=== PATIENT | male | born 1985 | race African-American/Black ===

== ENCOUNTER 2022-01-27 17:46 | Emergency (ER) | payer OTHER, SELFPAY ==
[2022-01-27 17:59] VITALS: BP 119/80; PULSE 94; RESP 16; TEMP 37.2; O2SAT 98
[2022-01-27 18:45] LABS: Influenza A QL RT-PCR Negative (Negative); Influenza B QL RT-PCR Negative (Negative); SARS-CoV-2 RNA PCR Positive
[2022-01-27 20:38] VITALS: BP 126/80; PULSE 76; RESP 16; TEMP 36.7; O2SAT 100
--- NOTE | 2022-01-27 21:02 | ED.FEVER ---
HPI - Fever General Chief Complaint: Fever Stated Complaint: intermittent fever Time Seen by Provider: 01/27/22 20:37 History of Present Illness HPI Narrative: 36-year-old male presenting to the emergency department for evaluation of cough and congestive symptoms. Patient states that Saturday he had a dental procedure and had to go anesthesia for a deep cleaning. Patient states after that he had increasing fatigue. Patient states on and Saturday he also felt poorly. Patient reports subjective fever with a dry cough. Patient denies any chest pain. Patient denies any nausea vomiting or diarrhea. Patient is vaccinated against COVID and patient did have COVID back in March. Patient denies any significant past medical history Review of Systems Review of Systems: CONSTITUTIONAL: Denies fever, chills, or sweats. EYES: Denies visual changes, redness, or discharge. ENT: Denies rhinorrhea, congestion, sore throat, or otalgia. CARDIOVASCULAR: Denies chest pain, palpitations, or edema. RESPIRATORY: See HPI GASTROINTESTINAL: Denies abdominal pain, nausea, vomiting, or diarrhea. GENITOURINARY: Denies dysuria or hematuria. SKIN: Denies rash or itching. MUSCULOSKELETAL: Denies back pain, joint pain, or myalgia. NEUROLOGIC: Denies headache, numbness, or weakness. Exam Narrative: APPEARANCE: Well appearing, no pain, no distress, well-nourished. HEAD: normocephalic, atraumatic. EYES: PERRLA/EOMI, conjunctivae clear. NOSE: Normal no drainage EARS:TMS clear with good light reflex. THROAT: Pharynx clear, no exudate. NECK: Supple. No adenopathy, no masses. RESPIRATORY: Airway patent, respirations nonlabored. Clear to auscultation bilaterally, no rales, rhonchi, wheezing. CARDIOVASCULAR: Regular rate and rhythm without murmurs rubs or gallops. ABDOMINAL: Soft, nontender, nondistended, normal bowel sounds MUSCULOSKELETAL: Moves all extremities. Strength/ROM intact, No edema, No calf tenderness. NEURO: Alert. Cranial nerves II through XII intact. Grossly intact SKIN: Warm, dry. Normal Color Course BUILDING ENERGY CONSULTANT/PA Physician Supervision Patient did test positive for COVID. Patient was prescribed albuterol inhaler and Tessalon Perles. Patient was provided a primary care physician for follow-up. All question concerns were addressed. Patient was comfortable to plan for discharge and close follow-up. Vital Signs Vital signs: Vital Signs Temperature 99.0 F 01/27/22 17:59 Pulse Rate 94 01/27/22 17:59 Respiratory Rate 16 01/27/22 17:59 Blood Pressure 119/80 01/27/22 17:59 Pulse Oximetry 98 01/27/22 17:59 Oxygen Delivery Room Air 01/27/22 17:59 Temperature 98.0 F 01/27/22 21:32 Pulse Rate 76 01/27/22 21:32 Respiratory Rate 16 01/27/22 21:32 Blood Pressure 122/68 01/27/22 21:32 Pulse Oximetry 100 01/27/22 21:32 Oxygen Delivery Room Air 01/27/22 20:38 MDM - Fever Lab Data Attestation: I reviewed the patient's lab results. Labs: Lab Results 01/27/22 Range/Units 18:03 Influenza A (RT-PCR) Negative (Negative) Influenza B (RT-PCR) Negative (Negative) SARS-CoV-2 RNA (RT-PCR) Positive A Discharge Plan Discharge Clinical Impression: COVID Patient Disposition: Home, Self-Care Condition: Stable Instructions: Antibiotic Form, COVID-19 (Coronavirus Disease 2019) (ED) Additional Instructions: Tylenol and ibuprofen for fever and for body aches. Albuterol inhaler for cough. Tessalon Perles for additional cough. Have close follow-up with Dr. Jeter. If you have any worsening symptoms please call or return to the emergency room Prescriptions: New albuterol sulfate 90 mcg/actuation HFA aerosol inhaler 1 inh inhalation QID PRN (Reason: shortness of breath or wheezing) Qty: 6.7 0RF benzonatate 100 mg capsule 100 mg PO BID PRN (Reason: cough) Qty: 14 0RF Follow-up/Referrals: PHYSICIAN,RAYMOND MILL OPERATOR [Primary Care Provider] - Ha Jeter MD [Physician] - Alessandra Hart
[2022-01-27 21:32] VITALS: BP 122/68; PULSE 76; RESP 16; TEMP 36.7; O2SAT 100
== END 2022-01-27 21:34 | disposition home or self-care (01) ==
PROVIDERS: Nurse Practitioner Family; Emergency Provider Emergency Medicine
DX: U07.1 COVID-19 (principal)
CPT/HCPCS: 87502; 99283; U0003; U0005

== ENCOUNTER 2022-02-17 09:10 | Outpatient (CLI) | payer OTHER, SELFPAY ==
--- NOTE | ~2022-02-17 | XR_ITS ---
EXAMINATION: XR chest 2V 02/17/2022 09:25 INDICATION: Cough for 2 weeks PROCEDURE: 2 view chest COMPARISON: No prior studies for comparison. FINDINGS: The lungs are clear. The cardiomediastinal silhouette is within normal limits. There are no pleural effusions. There is no pneumothorax suspected. IMPRESSION: 1: NO ACUTE CARDIOPULMONARY DISEASE. Reviewed, dictated and finalized at location A. GRAPH OPERATOR
[2022-02-17 10:27] LABS: Hematocrit 43.1 % (42.0-52.0); Hemoglobin 14.2 g/dL (14.0-18.0); Mean Corpuscular HGB Conc 32.9 g/dl (32-36); Mean Corpuscular Hemoglobin 29.3 pg (26-34); Mean Platelet Volume 11.5 fl (7.4-10.4); Platelet Count Result 296 k/mm3 (150-375); Red Blood Count 4.84 M/mm3 (4.6-6.20); Red Cell Distribution Width 13.6 % (11.5-14.5); White Blood Count 3.5 K/mm3 (4.5-10.0)
[2022-02-17 10:30] LABS: Alanine Aminotransferase 25 U/L (6-50); Albumin Level 4.4 g/dL (3.5-5.1); Alkaline Phosphatase 94 U/L (38-126); Anion Gap 8 mmol/L (8-16); Aspartate Amino Transferase 25 U/L (17-59); Bilirubin,Total 0.2 mg/dL (0.2-1.3); Blood Urea Nitrogen 13 mg/dL (9-20); Calcium 8.8 mg/dL (8.4-10.2); Carbon Dioxide 27 mmol/L (22-30); Chloride 107 mmol/L (98-107); Cholesterol 183 mg/dL (0-200); Estimated Glomerular Filt Rate > 60; Glucose 87 mg/dL (65-110); HDL Direct 40 mg/dL; Potassium 3.9 mmol/L (3.4-5.0); Sodium 142 mmol/L (137-145); Triglycerides 63 mg/dL (<150)
[2022-02-17 10:39] LABS: Hemoglobin A1C 5.5 % (<5.7)
[2022-02-17 10:42] LABS: LDL Cholesterol Direct 108 mg/dL
[2022-02-17 10:58] LABS: Thyroid Stimulating Hormone 0.718 uIU/mL (0.465-4.680)
[2022-02-17 11:04] LABS: Creatinine Urine 290.2 mg/dL
[2022-02-17 11:09] LABS: Vitamin D 25 Hydroxy 35.4 ng/mL
[2022-02-17 11:09] LABS: MALB Creatinine Ratio 4.3 mg/g (0-30); Microalbumin Urine Random 12.5 mg/L (0-16.7)
== END 2022-02-17 09:11 | disposition home or self-care (01) ==
PROVIDERS: PCP Emergency Medicine; Visit Provider Emergency Medicine
DX: Z00.00 Encounter for general adult medical examination without abnormal findings (principal); R05.9 Cough, unspecified
CPT/HCPCS: 36415; 71046; 80053; 80061; 82043; 82306; 83036; 84439; 84443; 85027

== ENCOUNTER 2022-04-07 08:42 | Outpatient (CLI) | payer OTHER, SELFPAY ==
[2022-04-07 09:13] LABS: Hematocrit 43.5 % (42.0-52.0); Hemoglobin 14.5 g/dL (14.0-18.0); Mean Corpuscular HGB Conc 33.3 g/dl (32-36); Mean Corpuscular Hemoglobin 29.3 pg (26-34); Mean Corpuscular Volume 87.9 fl (80-100); Mean Platelet Volume 11.3 fl (7.4-10.4); Platelet Count Result 298 k/mm3 (150-375); Red Blood Count 4.95 M/mm3 (4.6-6.20); Red Cell Distribution Width 13.8 % (11.5-14.5); White Blood Count 3.5 K/mm3 (4.5-10.0)
[2022-04-07 10:23] LABS: Hepatitis B Surface Antigen Negative (Negative)
[2022-04-07 10:29] LABS: HAV RESULT Negative (Negative); Hepatitis B Core IgM Result Negative (Negative)
[2022-04-07 10:33] LABS: HIV 1/2 Ab P24 Ag Result Negative (Negative)
[2022-04-07 10:40] LABS: Hepatitis C Virus Antibody Negative (Negative)
[2022-04-09 10:51] LABS: Rapid Plasma Reagin Non-Reactive (NonReactive)
== END 2022-04-07 08:43 | disposition home or self-care (01) ==
LOC: ANHLAB 08:45
PROVIDERS: PCP Emergency Medicine; Visit Provider Emergency Medicine
DX: D72.819 Decreased white blood cell count, unspecified (principal)
CPT/HCPCS: 36415; 80074; 85027; 86592; 86703; 86850; 86900; 86901; 87491; 87591; G0432

== ENCOUNTER 2022-04-24 16:43 | Outpatient (CLI) | payer OTHER, SELFPAY ==
--- NOTE | ~2022-04-24 | XR_ITS ---
EXAMINATION:XR cervical spine 4-5V DATE: 04/24/2022 17:23 INDICATION: Burning sensation at the bilateral hands. TECHNIQUE: AP, lateral, lateral swimmers and odontoid views of the cervical spine are provided. COMPARISON: None FINDINGS: Alignment is normal. Odontoid is intact. Normal atlantoaxial interval. Vertebral body heights are no rmal. Disc spaces are normal. No evident facet or uncovertebral osteoarthritis. Prevertebral soft tis sues are normal. Visualized apices of lungs are clear. IMPRESSION: 1. Negative cervical spine radiographs. Reviewed, dictated and finalized at location A. UTER PERIPHERAL EQUIPMENT OPERATOR
--- NOTE | ~2022-04-24 | XR_ITS ---
EXAMINATION: XR lumbar spine 2-3V DATE: 04/24/2022 17:23 INDICATION: Low back pain TECHNIQUE: Anteroposterior and lateral views of the lumbar spine, and cone-down lateral view of the l umbosacral junction were obtained. COMPARISON: None. FINDINGS: Straightening of the normal lumbar lordosis. Vertebral body and disc heights are normal. Multilevel m ild lumbar facet osteoarthritis. Bilateral hip and sacroiliac joint spaces are normal. Posterior sulc i of the lungs are clear with no pleural effusion. IMPRESSION: 1. Straightening of the normal lumbar lordosis with multilevel mild lumbar facet osteoarthritis. Reviewed, dictated and finalized at location A. R D MANAGER IMPRESSION: 1. Straightening of the normal lumbar lordosis with multilevel mild lumbar face t osteoarthritis.
== END 2022-04-24 16:44 | disposition home or self-care (01) ==
PROVIDERS: PCP Emergency Medicine; Visit Provider Emergency Medicine
DX: M54.50 Low back pain, unspecified (principal); M51.36 Other intervertebral disc degeneration, lumbar region
CPT/HCPCS: 72050; 72100

== ENCOUNTER 2022-04-28 07:38 | Outpatient (CLI) | payer OTHER, SELFPAY ==
[2022-04-28 08:24] LABS: Erythrocyte Sedimentation Rate 20 mm/hr (0-20)
[2022-04-28 08:38] LABS: Influenza A QL RT-PCR Negative (Negative); Influenza B QL RT-PCR Negative (Negative); RSV RNA, RT-PCR Negative (Negative); SARS-CoV-2 RNA PCR Negative
[2022-04-28 10:36] LABS: Rheumatoid Factor < 8.6 IU/ML (<12)
[2022-04-28 11:39] LABS: Folic Acid > 20.0 ng/mL (2.76->20)
[2022-05-02 14:47] LABS: Vitamin B6 58.7 ng/mL (2.1-21.7)
== END 2022-04-28 07:39 | disposition home or self-care (01) ==
LOC: ANHLAB 07:40
PROVIDERS: PCP Emergency Medicine; Visit Provider Emergency Medicine
DX: M54.50 Low back pain, unspecified (principal); Z00.00 Encounter for general adult medical examination without abnormal findings; R51.9 Headache, unspecified; R20.8 Other disturbances of skin sensation; Z20.822 Contact with and (suspected) exposure to COVID-19
CPT/HCPCS: 36415; 82607; 82746; 84207; 85652; 86038; 86430; 87491; 87591; 87637

== ENCOUNTER 2022-06-22 18:40 | Emergency (ER) | payer OTHER, SELFPAY ==
[2022-06-22] VITALS (9 sets, daily range): BP systolic 108–127; BP diastolic 60–80; PULSE 56–69; RESP 14–20; TEMP 36.4; O2SAT 98–100
--- NOTE | ~2022-06-22 | XR_ITS ---
XR chest 2V DATE: 06/22/2022 19:46 INDICATION: Right lower chest pain. Shortness of breath. Chest tightness during inspiration. TECHNIQUE: PA and lateral views COMPARISON: None FINDINGS: Normal heart size. No hilar or mediastinal enlargement. No pulmonary infiltrate or consolid ation, pleural effusion or pulmonary vascular congestion or pneumothorax. Included skeletal structures are unremarkable. IMPRESSION: Negative Reviewed, dictated and finalized at location A. IMPRESSION: Negative
--- NOTE | 2022-06-22 18:41 | ECG_ITS ---
Measurements Intervals [place] Rate: 57 P: 73 SD: 137 QRS: 68 QRSD: 86 T: 40 QT: 360 QTc: 351 Interpretive Statements SINUS BRADYCARDIA POSSIBLE LEFT ATRIAL ENLARGEMENT POSSIBLE RIGHT VENTRICULAR CONDUCTION DELAY [RSR (QR) IN V1/V2] ABNORMAL ECG NO PREVIOUS ECG AVAILABLE FOR COMPARISON Electronically Signed On 06-23-2022 15:16:35 CDT by Michael Liang M.D.
[2022-06-22 19:09] LABS: Basophils Percent Auto 0.6 % (0.2-1.2); Eosinophils Absolute Auto 0.3 K/mm3 (0-0.3); Eosinophils Percent Auto 6.4 % (0-4.4); Hematocrit 42.1 % (42.0-52.0); Immature Granulocyte Absolute 0.01 K/mm3 (0.00-0.031); Immature Granulocyte Percent A 0.2 % (0-0.5); Lymphocytes Absolute Auto 2.04 K/mm3 (0.9-3.2); Lymphocytes Percent Auto 38.2 % (18.3-44.2); Mean Corpuscular HGB Conc 33.3 g/dl (32-36); Mean Corpuscular Hemoglobin 29.6 pg (26-34); Monocytes Absolute Auto 0.5 K/mm3 (0.1-0.6); Monocytes Percent Auto 9.2 % (2.6-8.5); Neutrophils Absolute Auto 2.4 K/mm3 (1.3-6.7); Neutrophils Percent Auto 45.4 % (45.5-73.1); Platelet Count Result 255 k/mm3 (150-375); Red Blood Count 4.73 M/mm3 (4.6-6.20); Red Cell Distribution Width 13.8 % (11.5-14.5); White Blood Count 5.3 K/mm3 (4.5-10.0)
[2022-06-22 19:20] LABS: Alanine Aminotransferase 22 U/L (6-50); Albumin Level 4.5 g/dL (3.5-5.1); Alkaline Phosphatase 115 U/L (38-126); Anion Gap 8 mmol/L (8-16); Aspartate Amino Transferase 24 U/L (17-59); Bilirubin,Total 0.3 mg/dL (0.2-1.3); Blood Urea Nitrogen 19 mg/dL (9-20); Calcium 9.1 mg/dL (8.4-10.2); Carbon Dioxide 28 mmol/L (22-30); Chloride 106 mmol/L (98-107); Estimated CRCL calculation 84 ml/min; Estimated Glomerular Filt Rate > 60; Glucose 83 mg/dL (65-110); Lipase 310 U/L (23-300); Potassium 4.1 mmol/L (3.4-5.0); Sodium 142 mmol/L (137-145)
[2022-06-22 19:30] LABS: INR 1.1; Partial Thromboplastin Time 28.5 SECONDS (22.3-36.8); Prothrombin Time 13.7 Seconds (11.1-14.7)
[2022-06-22 19:31] LABS: Troponin I < 0.012 ng/mL (0.000-0.034)
--- NOTE | 2022-06-22 20:41 | ED.CHESTPAIN ---
HPI - Chest Pain General Chief Complaint: Chest Pain Stated Complaint: chest pain Time Seen by Provider: 06/22/22 20:34 Source: patient, RN notes reviewed and old records reviewed Mode of arrival: ambulatory Limitations: no limitations History of Present Illness HPI narrative: This is a 36 year old male who presents for evaluation of right chest sternal pain . He states he woke up this morning with right sternal pain. He states this pain is intermittent, sharp and nonradiating. His pain is elicited with taking deep breath. He denies cough, fever, chills, nausea, vomiting or shortness of breath. HE reports having similar pain years ago when he would drink too much alcohol but he no longer drinks. HE denies history of DVT, PE. He denies any recent travel. Related Data Allergies Allergy/AdvReac Type Severity Reaction Status Date / Time No Known Allergies Allergy Verified 06/22/22 20:51 Review of Systems Constitutional: Constitutional: Denies weakness Cardiovascular: Cardiovascular: Reports chest pain, Denies syncope, Denies rapid heart rate, Denies irregular heart rhythm, Denies leg edema and Denies dyspnea Respiratory: Respiratory: Denies chest congestion, Denies hemoptysis, Denies excessive phlegm production and Denies dyspnea Gastrointestinal: Gastrointestinal: Denies abdominal pain, Denies hematochezia, Denies diarrhea and Denies vomiting Genitourinary: Genitourinary: Denies hematuria, Denies dysuria, Denies penile discharge and Denies testicular pain Musculoskeletal: Musculoskeletal: Denies joint swelling, Denies loss of height and Denies muscle weakness Neurologic: Denies syncope, Denies focal weakness and Denies weakness PMFSH Past Medical History Medical History (Updated 06/22/22 @ 22:30 by Isadora Little MD) No significant medical problems Social History Social History (Updated 06/22/22 @ 20:46 by Isadora Little MD) Smoking status: Never smoker Alcohol intake: former Exam Const: General: no acute distress and alert Nutritional Appearance: well nourished Orientation/consciousness: patient oriented x3 Limitations: no limitations HENMT: Head: normal to inspection Eyes: EOM: EOMs intact bilaterally Chest: Chest palpation & inspection: normal inspection of the chest Resp: Effort & Inspection: normal respiratory effort Auscultation: clear to auscultation bilaterally Cardio: Rate: regular rate Rhythm: regular rhythm Heart sounds: no murmurs GI: GI Palp: Yes Soft to palpation, No Tenderness to palpation present (GI), No Guarding due to palpation present (GI) and No Rigid due to palpation Auscultation: normal bowel sounds Back/Spine/Pelvis: Back: no CVA tenderness Skin: General skin exam: normal color Rashes: no rashes Wounds: no wounds Neuro: General: patient oriented x3, moves all extremities and CN's II-XI intact bilaterally Extrem: General: normal to inspection, no clubbing, cyanosis or edema and no pedal edema Psych: Mental Status: mental status grossly normal Affect: normal affect Attitude: cooperative Course Reevaluation(s) Reevaluation #1: PAtient reports that he feels better. PAtient does not have abdominal pain or tenderness to suggest pancreatitis. He feels better. Will discharge home. Date: 06/22/22 Time: 22:27 Vital Signs Vital signs: Vital Signs Temperature 97.6 F 06/22/22 18:50 Pulse Rate 62 06/22/22 18:50 Respiratory Rate 20 06/22/22 18:50 Blood Pressure 124/74 06/22/22 18:50 Pulse Oximetry 100 06/22/22 18:50 Oxygen Delivery Room Air 06/22/22 18:50 Temperature 97.6 F 06/22/22 18:50 Pulse Rate 56 L 06/22/22 22:54 Respiratory Rate 16 06/22/22 22:54 Blood Pressure 120/77 06/22/22 22:54 Pulse Oximetry 100 06/22/22 22:54 Oxygen Delivery Room Air 06/22/22 18:50 MDM - Chest Pain MDM Narrative Medical decision making narrative: PAtient presented with pleuritic chest pain, he is low risk for PE. He has n
[2022-06-22] MEDS: KETOROLAC 15 MG/ML VIAL (*BKC) IV PUSH (20:52)
[2022-06-22 21:52] LABS: D Dimer < 0.27 ug/mL (<0.48)
[2022-06-22 22:15] LABS: Troponin I < 0.012 ng/mL (0.000-0.034)
== END 2022-06-22 22:55 | disposition home or self-care (01) ==
PROVIDERS: Emergency Provider General Practice; PCP Emergency Medicine
DX: R07.89 Other chest pain (principal); R00.1 Bradycardia, unspecified; R94.31 Abnormal electrocardiogram [ECG] [EKG]
CPT/HCPCS: 36415; 71046; 80053; 83690; 84484; 85025; 85380; 85610; 85730; 93005; 96374; 99284; J1885

== ENCOUNTER 2022-06-27 14:26 | Outpatient (CLI) | payer OTHER, SELFPAY ==
[2022-06-27 14:47] LABS: Basophils Percent Auto 0.7 % (0.2-1.2); Eosinophils Absolute Auto 0.2 K/mm3 (0-0.3); Eosinophils Percent Auto 4.6 % (0-4.4); Hematocrit 41.2 % (42.0-52.0); Hemoglobin 13.8 g/dL (14.0-18.0); Lymphocytes Absolute Auto 1.54 K/mm3 (0.9-3.2); Lymphocytes Percent Auto 37.6 % (18.3-44.2); Mean Corpuscular HGB Conc 33.5 g/dl (32-36); Mean Corpuscular Hemoglobin 29.4 pg (26-34); Mean Corpuscular Volume 87.7 fl (80-100); Mean Platelet Volume 11.5 fl (7.4-10.4); Monocytes Absolute Auto 0.3 K/mm3 (0.1-0.6); Monocytes Percent Auto 8.3 % (2.6-8.5); Neutrophils Percent Auto 48.8 % (45.5-73.1); Platelet Count Result 255 k/mm3 (150-375); Red Cell Distribution Width 13.5 % (11.5-14.5); White Blood Count 4.1 K/mm3 (4.5-10.0)
[2022-06-27 16:27] LABS: Iron 37 ug/dL (49-181)
[2022-06-27 16:36] LABS: Alanine Aminotransferase 23 U/L (6-50); Albumin Level 4.5 g/dL (3.5-5.1); Alkaline Phosphatase 137 U/L (38-126); Anion Gap 7 mmol/L (8-16); Aspartate Amino Transferase 28 U/L (17-59); Bilirubin,Total 0.3 mg/dL (0.2-1.3); Blood Urea Nitrogen 10 mg/dL (9-20); Calcium 8.9 mg/dL (8.4-10.2); Carbon Dioxide 29 mmol/L (22-30); Chloride 104 mmol/L (98-107); Estimated Glomerular Filt Rate > 60; Glucose 92 mg/dL (65-110); Sodium 140 mmol/L (137-145)
[2022-06-27 16:38] LABS: Percent Iron Saturation 12 % (20-50)
[2022-06-27 17:37] LABS: Folic Acid > 20.0 ng/mL (2.76->20)
== END 2022-06-27 14:27 | disposition home or self-care (01) ==
PROVIDERS: PCP Emergency Medicine; Visit Provider Internal Medicine Hematology & Oncology
DX: D72.819 Decreased white blood cell count, unspecified (principal)
CPT/HCPCS: 36415; 80053; 82607; 82728; 82746; 83540; 83550; 85025

== ENCOUNTER 2022-07-03 12:35 | Outpatient (CLI) | payer OTHER, SELFPAY | END 2022-07-03 12:36 | disposition home or self-care (01) | LOC: ANHLAB 12:36 | PROVIDERS: PCP Emergency Medicine; Visit Provider Internal Medicine Hematology & Oncology | DX: D72.819 Decreased white blood cell count, unspecified (principal) | CPT/HCPCS: 36415; 86038 ==

== ENCOUNTER 2023-07-24 17:44 | Emergency (ER) | payer OTHER, SELFPAY ==
[2023-07-24 17:59] VITALS: BP 121/68; PULSE 68; RESP 16; TEMP 36.9; O2SAT 100
--- NOTE | 2023-07-24 18:04 | ED.URI ---
HPI - URI/Sore Throat General Chief Complaint: Upper Respiratory Infection Stated Complaint: SORE THROAT/HEADACHE History of Present Illness HPI Narrative: 37 y/o male presented for c/o sore throat x4 weeks. Reports occasional runny nose or congestion. Denies abdominal pain, heartburn, n/v/f/c. Tried herbal remedies without significant improvement. Related Data Home Medications Medication Instructions Recorded Confirmed No Home Medications 07/24/23 07/24/23 Allergies Allergy/AdvReac Type Severity Reaction Status Date / Time No Known Allergies Allergy Verified 07/24/23 17:53 Review of Systems Review of Systems: CONSTITUTIONAL: Denies body aches, fever, chills, or sweats. EYES: Denies visual changes, redness, or discharge. ENT: Reports sore throat Denies rhinorrhea, congestion, or otalgia. CARDIOVASCULAR: Denies chest pain, palpitations, or edema. RESPIRATORY: Denies dyspnea. GASTROINTESTINAL: Denies abdominal pain, nausea, vomiting, or diarrhea. SKIN: Denies rash, itching, or wounds. MUSCULOSKELETAL: Denies back pain, joint pain, or myalgia. NEUROLOGIC: Denies headache PMFSH Past Medical History Medical History No significant medical problems Social History Social History Smoking status: Never smoker Alcohol intake: former Exam Narrative: GENERAL: well-appearing, no acute distress. EYES: conjunctivae clear ENT: Mucous membranes moist. TM pearly blank with normal light reflex bilaterally; no tragal tenderness. Oropharynx not erythematous without lesions. Tonsils not enlarged and without exudate. No drooling, no hoarseness, no trismus, uvula midline. No tripod positioning, hot potato voice, or soft palate swelling. NECK: Supple. No lymphadenopathy CHEST: Clear to auscultation, breath sounds equal. No respiratory distress, speaks in full sentences. HEART: Regular rate and rhythm. No murmur heard. SKIN: Warm, dry, no rash. NEURO: Alert and oriented x3. Course Course Emergency Course: Patient is aware of diagnosis, understands and agrees to treatment plan. Anticipatory guidance given. Patient agrees to follow-up as directed and is aware of reasons to seek care at the emergency department. Portions of this record may have been created with voice recognition software Level of Care: Express Care Visit Vital Signs Vital signs: Vital Signs Temperature 98.5 F 07/24/23 17:59 Pulse Rate 68 07/24/23 17:59 Respiratory Rate 16 07/24/23 17:59 Blood Pressure 121/68 07/24/23 17:59 Pulse Oximetry 100 07/24/23 17:59 Temperature 98.5 F 07/24/23 17:59 Pulse Rate 68 07/24/23 17:59 Respiratory Rate 16 07/24/23 17:59 Blood Pressure 121/68 07/24/23 17:59 Pulse Oximetry 100 07/24/23 17:59 MDM - URI/Sore Throat MDM Narrative Medical decision making narrative: Negative strep result reviewed with pt. Advise supportive treatments. Patient is appropriate for outpatient treatment and follow-up. Differential Diagnosis Differential diagnosis: Likely upper respiratory infection, viral infection and pharyngitis Discharge Plan Discharge Clinical Impression: Pain in throat Patient Disposition: Home, Self-Care Condition: Stable Instructions: Antibiotic Form, Pharyngitis (ED) Additional Instructions: Rapid strep swab was negative today You will be notified in a few days if the culture comes back positive for strep, and appropriate antibiotics will be called in at that time. if symptoms are due to a viral illness, it is not treated with antibiotics. Viral symptoms can be present for up to 10-14 days. Recommend Flonase spray and Zyrtec for nasal drainage Cough syrup may cause drowsiness; avoid driving or take it at night time. Tylenol every 8 hours as needed for pain/fever Soft foods, cool liquids, warm tea. Gargle with warm saltwater
== END 2023-07-24 18:18 | disposition home or self-care (01) ==
PROVIDERS: Emergency Provider Nurse Practitioner Family; PCP Emergency Medicine
DX: R07.0 Pain in throat (principal)
CPT/HCPCS: 87081; 87880; 99213; G0463

== ENCOUNTER 2023-07-27 06:50 | Outpatient (CLI) | payer OTHER, SELFPAY ==
[2023-07-27 07:57] LABS: Hematocrit 41.7 % (42.0-52.0); Hemoglobin 13.7 g/dL (14.0-18.0); Mean Corpuscular HGB Conc 32.9 g/dl (32-36); Mean Corpuscular Hemoglobin 28.5 pg (26-34); Mean Corpuscular Volume 86.9 fl (80-100); Mean Platelet Volume 12.1 fl (7.4-10.4); Platelet Count Result 259 k/mm3 (150-375); Red Cell Distribution Width 13.5 % (11.5-14.5); White Blood Count 4.1 K/mm3 (4.5-10.0)
[2023-07-27 08:09] LABS: Cholesterol 156 mg/dL (0-200); HDL Direct 34 mg/dL; Lipase 218 U/L (23-300); Triglycerides 90 mg/dL (<150)
[2023-07-27 08:35] LABS: LDL Cholesterol Direct 107 mg/dL
[2023-07-27 08:38] LABS: Thyroid Stimulating Hormone 0.593 uIU/mL (0.465-4.680)
[2023-07-27 09:06] LABS: Iron 45 ug/dL (49-181)
[2023-07-27 09:17] LABS: Percent Iron Saturation 16 % (20-50)
[2023-07-27 09:24] LABS: Free T4 Free Thyroxine 1.18 ng/mL (0.78-2.19)
[2023-08-15 15:17] LABS: GGT 13 U/L
== END 2023-07-27 06:51 | disposition home or self-care (01) ==
LOC: ANHLAB 06:51
PROVIDERS: PCP Emergency Medicine; Visit Provider Emergency Medicine
DX: Z00.00 Encounter for general adult medical examination without abnormal findings (principal); R94.5 Abnormal results of liver function studies
CPT/HCPCS: 36415; 80061; 82977; 83540; 83550; 83690; 84439; 84443; 85027

== ENCOUNTER 2023-08-03 10:14 | Outpatient (CLI) | payer OTHER, SELFPAY ==
--- NOTE | ~2023-08-03 | XR_ITS ---
EXAMINATION: XR chest 2V DATE: 08/03/2023 10:30 INDICATION: Dry cough. TECHNIQUE: Frontal and lateral views of the chest were obtained. COMPARISON: Chest 2 views 06/22/2022 FINDINGS: There is no pneumonia, pleural effusion, or pneumothorax. The heart size is normal. IMPRESSION: 1. No acute cardiopulmonary disease. Reviewed, dictated and finalized at location A.
[2023-08-03 11:31] LABS: Alanine Aminotransferase 34 U/L (6-50); Albumin Level 4.3 g/dL (3.5-5.1); Alkaline Phosphatase 94 U/L (38-126); Anion Gap 6 mmol/L (4-12); Aspartate Amino Transferase 30 U/L (17-59); Bilirubin,Total 0.3 mg/dL (0.2-1.3); Blood Urea Nitrogen 15 mg/dL (9-20); Carbon Dioxide 26 mmol/L (22-30); Chloride 109 mmol/L (98-107); Estimated Glomerular Filt Rate > 60; Glucose 90 mg/dL (65-110); Potassium 3.8 mmol/L (3.4-5.0); Sodium 141 mmol/L (137-145)
[2023-08-03 13:28] LABS: Folic Acid 12.3 ng/mL (2.76->20)
[2023-08-14 12:53] LABS: GGT 15
== END 2023-08-03 10:15 | disposition home or self-care (01) ==
LOC: ANHIMG 10:15
PROVIDERS: PCP Emergency Medicine; Visit Provider Emergency Medicine
DX: R05.9 Cough, unspecified (principal)
CPT/HCPCS: 36415; 71046; 80053; 82607; 82746; 82977

== ENCOUNTER 2023-09-07 11:22 | Outpatient (CLI) | payer OTHER, SELFPAY ==
[2023-09-07 11:44] LABS: Basophils Percent Auto 0.3 % (0.2-1.2); Eosinophils Absolute Auto 0.1 K/mm3 (0-0.3); Eosinophils Percent Auto 3.3 % (0-4.4); Hematocrit 41.8 % (42.0-52.0); Hemoglobin 14.1 g/dL (14.0-18.0); Immature Granulocyte Absolute 0.01 K/mm3 (0.00-0.031); Immature Granulocyte Percent A 0.3 % (0-0.5); Lymphocytes Absolute Auto 1.48 K/mm3 (0.9-3.2); Lymphocytes Percent Auto 37.4 % (18.3-44.2); Mean Corpuscular HGB Conc 33.7 g/dl (32-36); Mean Corpuscular Hemoglobin 29.4 pg (26-34); Mean Corpuscular Volume 87.1 fl (80-100); Mean Platelet Volume 11.7 fl (7.4-10.4); Monocytes Absolute Auto 0.2 K/mm3 (0.1-0.6); Monocytes Percent Auto 5.6 % (2.6-8.5); Neutrophils Absolute Auto 2.1 K/mm3 (1.3-6.7); Neutrophils Percent Auto 53.1 % (45.5-73.1); Platelet Count Result 224 k/mm3 (150-375)
[2023-09-07 11:56] LABS: Anion Gap 8 mmol/L (4-12); Blood Urea Nitrogen 14 mg/dL (9-20); Carbon Dioxide 26 mmol/L (22-30); Chloride 107 mmol/L (98-107); Estimated Glomerular Filt Rate > 60; Glucose 113 mg/dL (65-110); Potassium 3.6 mmol/L (3.4-5.0); Sodium 141 mmol/L (137-145)
[2023-09-07 12:07] LABS: Iron 100 ug/dL (49-181)
[2023-09-07 12:19] LABS: Percent Iron Saturation 34 % (20-50)
[2023-09-07 13:03] LABS: Folic Acid 12.9 ng/mL (2.76->20)
== END 2023-09-07 11:23 | disposition home or self-care (01) ==
PROVIDERS: PCP Emergency Medicine; Visit Provider Nurse Practitioner Family
DX: D50.9 Iron deficiency anemia, unspecified (principal); D72.819 Decreased white blood cell count, unspecified
CPT/HCPCS: 36415; 80048; 82607; 82728; 82746; 83540; 83550; 85025

== ENCOUNTER 2023-11-23 08:26 | Outpatient (CLI) | payer OTHER, SELFPAY ==
--- NOTE | ~2023-11-23 | XR_ITS ---
EXAMINATION: XR abdomen/kub 1V DATE: 11/23/2023 08:47 INDICATION: Left-sided low back pain. TECHNIQUE: A supine view of the abdomen on 2 radiographs was obtained. COMPARISON: None. FINDINGS: There are no dilated loops of bowel. There is a large volume of stool in the colon. There i s no visible urolithiasis. IMPRESSION: 1. Nonobstructive bowel gas pattern. Reviewed, dictated and finalized at location A.
[2023-11-23 09:38] LABS: Iron 86 ug/dL (49-181)
[2023-11-23 09:56] LABS: Add Urine Microscopic? NO; Appearance Urine Clear (Clear); Bilirubin Urine Negative (Negative); Blood Urine Negative (Negative); Color Urine Yellow (Yellow); Glucose Urine UA Negative (Negative); Ketones Urine Negative (Negative); Leukocyte Esterase Ur Negative LEU/UL (Negative); Nitrate Urine Negative (Negative); Protein Urine Negative (Negative); Specific Grav Ur 1.009 (1.001-1.035); Urobilinogen Urine 0.2 mg/dL (<2.0)
[2023-11-23 10:12] LABS: Hepatitis B Surface Antigen Negative (Negative)
[2023-11-23 10:17] LABS: HAV RESULT Negative (Negative); Hepatitis B Core IgM Result Negative (Negative)
[2023-11-23 10:29] LABS: Hepatitis C Virus Antibody Negative (Negative)
[2023-11-27 22:34] LABS: Vitamin B1 8 nmol/L (8-30)
== END 2023-11-23 08:27 | disposition home or self-care (01) ==
LOC: ANHIMG 08:29
PROVIDERS: PCP Emergency Medicine; Visit Provider Emergency Medicine
DX: D64.9 Anemia, unspecified (principal); N39.0 Urinary tract infection, site not specified; R94.5 Abnormal results of liver function studies; M54.50 Low back pain, unspecified
CPT/HCPCS: 36415; 74018; 80074; 81003; 83540; 84425; 87086

== ENCOUNTER 2023-12-04 08:50 | Outpatient (CLI) | payer OTHER, SELFPAY ==
--- NOTE | ~2023-12-04 | US_ITS ---
EXAMINATION: US right upper quadrant DATE: 12/04/2023 09:37 INDICATION: Elevated liver enzymes TECHNIQUE: Multiple grayscale and Doppler ultrasound images of the abdomen were obtained. COMPARISON: None FINDINGS: The pancreatic head and body are normal in appearance. The pancreatic tail is not visualized. The vi sualized proximal aorta and inferior vena cava are normal. Liver has normal echogenicity and contour, with a smooth surface. No liver lesion identified. No intrahepatic biliary duct dilation suspected. Portal venous flow was seen in the hepatopetal, normal direction and has normal Doppler waveform. Tra nsient 3 mm nonshadowing echogenic nodule along the nondependent gallbladder wall consistent with a s mall cholesterol polyp. The gallbladder is otherwise normal in appearance. There is no cholelithiasi s. The common bile duct measures 3 mm, which is normal. Sonographic Vigil sign was reported as negat lyudmila by the direct service professional. IMPRESSION: 1. 2-3 mm gallbladder polyp. Otherwise unremarkable right upper quadrant ultrasound with no intra or extrahepatic biliary ductal dilation. Reviewed, dictated and finalized at location B. IMPRESSION: 1. 2-3 mm gallbladder polyp. Otherwise unremarkable right upper quadrant ultras ound with no intra or extrahepatic biliary ductal dilation.
== END 2023-12-04 08:51 | disposition home or self-care (01) ==
LOC: ANHIMG 08:52
PROVIDERS: PCP Emergency Medicine; Visit Provider Emergency Medicine
DX: M54.50 Low back pain, unspecified (principal); R74.8 Abnormal levels of other serum enzymes
CPT/HCPCS: 76705

== ENCOUNTER 2024-01-02 15:57 | Emergency (ER) | payer OTHER, SELFPAY ==
[2024-01-02 16:16] VITALS: BP 117/81; PULSE 80; RESP 16; TEMP 36.5; O2SAT 99
--- NOTE | 2024-01-02 16:40 | ED.HA ---
HPI - Headache General Chief Complaint: Headache Stated Complaint: Headache/Dizziness Source: patient and RN notes reviewed Mode of arrival: ambulatory Limitations: no limitations History of Present Illness HPI Narrative: 38 y/o male presented for c/o headache. Onset yesterday. Pain is to the right side of the head, worse with head movements. Pain has been persistent today; it was intermittent yesterday. Also reports intermittent dizziness x2 days. Endorses light sensitivity and decreased taste today. Denies vision changes, nasal congestion, chest pain, palpitations, n/v/d/f/c; denies numbness, tingling or weakness of the extremities. Not taking anything for the pain. Rates pain 11/25. Related Data Home Medications Medication Instructions Recorded Confirmed ferrous sulfate 325 mg (65 mg 325 mg PO DAILY 01/02/24 01/02/24 iron) tablet Allergies Allergy/AdvReac Type Severity Reaction Status Date / Time No Known Allergies Allergy Verified 01/02/24 16:21 Review of Systems Review of Systems: CONSTITUTIONAL: Denies body aches, fever, chills, or sweats. EYES: Denies visual changes, redness, or discharge. ENT: Denies rhinorrhea, congestion, sore throat, or otalgia. CARDIOVASCULAR: Denies chest pain, palpitations, or edema. RESPIRATORY: Denies cough or dyspnea. GASTROINTESTINAL: Denies abdominal pain, nausea, vomiting, or diarrhea. SKIN: Denies rash, itching, or wounds. MUSCULOSKELETAL: Denies back pain, joint pain, or myalgia. NEUROLOGIC: Endorses headache, dizziness denies numbness, tingling, or weakness PSYCH: Denies depression or anxiety. All systems reviewed & are unremarkable except as noted in HPI and below PMFSH Past Medical History Medical History No significant medical problems Social History Social History Smoking status: Never smoker Alcohol intake: former Comments At time of signature, I have reviewed and agree with nursing past medical, surgical, social and family history unless otherwise noted. Please see nursing chart for further information. There is no relevant family history pertinent to the presenting complaint Exam Narrative: GENERAL: Well-appearing, well-nourished HEAD: Normocephalic, atraumatic. EYES: PERRLA, EOMI. ENT: Mucous membranes pink and moist. No rhinorrhea. TMs normal bilaterally. NECK: Normal AROM. Supple. No lymphadenopathy. CHEST: No respiratory distress. Clear to auscultation. HEART: Regular rate and rhythm. No murmur appreciated. Normal peripheral pulses. ABDOMEN: Soft, nontender, nondistended, normal active bowel sounds. SKIN: Warm, dry, no rash. Capillary refill normal. Normal skin turgor. NEURO:No focal deficits. Alert and oriented x3. Finger to nose intact bilaterally. EOMs intact without nystagmus. No facial droop/asymmetry noted bilaterally. Grimace intact. Intact sensation in face. Hearing intact bilaterally. Shoulder shrug intact. Strength 5/5 bilateral upper extremities. Strength 5/5 bilateral lower extremities. Heel to spann intact bilaterally. Ambulatory exam with a normal based, steady gait. PSYCH: Normal affect. Course Course Emergency Course: Patient is aware of diagnosis, understands and agrees to treatment plan. Anticipatory guidance given. Patient agrees to follow-up as directed and is aware of reasons to seek care at the emergency department. Portions of this record may have been created with voice recognition software Level of Care: Express Care Visit Vital Signs Vital signs: Vital Signs Temperature 97.7 F 01/02/24 16:16 Pulse Rate 80 01/02/24 16:16 Respiratory Rate 16 01/02/24 16:16 Blood Pressure 117/81 01/02/24 16:16 Pulse Oximetry 99 01/02/24 16:16 Temperature 97.7 F 01/02/24 16:16 Pulse Rate 80 01/02/24 16:16 Respiratory Rate 16 01/02/24 16:16 Blood Pressure 117/81 01/02/24
[2024-01-02] MEDS: ACETAMINOPHEN 500 MG TABLET 1000 MG PO (16:47)
== END 2024-01-02 17:23 | disposition home or self-care (01) ==
PROVIDERS: Emergency Provider Nurse Practitioner Family
DX: R51.9 Headache, unspecified (principal)
CPT/HCPCS: 99213; A9270; G0463

== ENCOUNTER 2024-01-03 10:20 | Outpatient (CLI) | payer OTHER, SELFPAY ==
[2024-01-03 11:01] LABS: Basophils Percent Auto 0.5 % (0.2-1.2); Eosinophils Absolute Auto 0.1 K/mm3 (0-0.3); Eosinophils Percent Auto 3.4 % (0-4.4); Hematocrit 43.6 % (42.0-52.0); Hemoglobin 14.5 g/dL (14.0-18.0); Immature Granulocyte Absolute 0.01 K/mm3 (0.00-0.031); Immature Granulocyte Percent A 0.3 % (0-0.5); Lymphocytes Absolute Auto 1.69 K/mm3 (0.9-3.2); Lymphocytes Percent Auto 43.8 % (18.3-44.2); Mean Corpuscular HGB Conc 33.3 g/dl (32-36); Mean Corpuscular Hemoglobin 28.8 pg (26-34); Mean Corpuscular Volume 86.7 fl (80-100); Mean Platelet Volume 11.2 fl (7.4-10.4); Monocytes Absolute Auto 0.3 K/mm3 (0.1-0.6); Monocytes Percent Auto 7.8 % (2.6-8.5); Neutrophils Absolute Auto 1.7 K/mm3 (1.3-6.7); Neutrophils Percent Auto 44.2 % (45.5-73.1); Platelet Count Result 264 k/mm3 (150-375); Red Blood Count 5.03 M/mm3 (4.6-6.20); Red Cell Distribution Width 13.7 % (11.5-14.5); White Blood Count 3.9 K/mm3 (4.5-10.0)
[2024-01-03 11:18] LABS: Anion Gap 7 mmol/L (4-12); Blood Urea Nitrogen 9 mg/dL (9-20); Calcium 9.2 mg/dL (8.4-10.2); Carbon Dioxide 29 mmol/L (22-30); Chloride 104 mmol/L (98-107); Estimated Glomerular Filt Rate > 60; Glucose 85 mg/dL (65-110); Potassium 3.9 mmol/L (3.4-5.0); Sodium 140 mmol/L (137-145)
[2024-01-03 11:26] LABS: Iron 73 ug/dL (49-181)
[2024-01-03 11:38] LABS: Percent Iron Saturation 27 % (20-50)
[2024-01-03 12:19] LABS: Folic Acid 10.7 ng/mL (2.76->20)
== END 2024-01-03 10:21 | disposition home or self-care (01) ==
LOC: ANHLAB 10:22
PROVIDERS: Visit Provider Internal Medicine Hematology & Oncology
DX: D50.9 Iron deficiency anemia, unspecified (principal)
CPT/HCPCS: 36415; 80048; 82607; 82728; 82746; 83540; 83550; 85025

== ENCOUNTER 2024-01-07 14:43 | Outpatient (CLI) | payer OTHER, SELFPAY ==
[2024-01-12 11:44] LABS: Testosterone Free 49.9 pg/mL (35.0-155.0); Testosterone Total 172 ng/dL (250-1100)
== END 2024-01-07 14:44 | disposition home or self-care (01) ==
LOC: ANHLAB 14:45
PROVIDERS: Visit Provider Internal Medicine Hematology & Oncology
DX: E34.9 Endocrine disorder, unspecified (principal)
CPT/HCPCS: 36415; 84402; 84403

== ENCOUNTER 2024-01-18 09:43 | Outpatient (CLI) | payer OTHER, SELFPAY ==
--- NOTE | ~2024-01-18 | US_ITS ---
US abdomen complete DATE: 01/18/2024 10:22 INDICATION: Abdominal pain, discomfort. Elevated liver enzymes. TECHNIQUE: Real-time and color flow imaging of the abdomen COMPARISON: 12/04/2023 right upper quadrant abdominal ultrasound examination FINDINGS: The pancreas is obscured by bowel gas. No hepatic space-occupying mass lesion is evident. Normal hepatopedal portal venous flow direction. Small gallbladder polyp. No gallbladder wall thickening or pericholecystic fluid collection. Negative sonographic Vigil sign. The common bile duct measures 2 mm. Inferior vena cava is patent. Normal caliber of the abdominal aorta. Spleen measures 9.7 cm length, normal. Right kidney measures 10.9 cm length. Left kidney measures 10.4 cm length. No renal mass lesion or hy dronephrosis is detected. IMPRESSION: Pancreas is obscured, not evaluated. Consider CT abdomen examination for this purpose Small gallbladder polyp Reviewed, dictated and finalized at Location A. Reviewed, dictated and finalized at location A. IMPRESSION: Pancreas is obscured, not evaluated. Consider CT abdomen examinatio n for this purpose Small gallbladder polyp
== END 2024-01-18 09:44 | disposition home or self-care (01) ==
PROVIDERS: PCP Emergency Medicine; Visit Provider Internal Medicine Hematology & Oncology
DX: K82.4 Cholesterolosis of gallbladder (principal); R10.9 Unspecified abdominal pain
CPT/HCPCS: 76700

== ENCOUNTER 2024-03-07 10:06 | Outpatient (CLI) | payer OTHER, SELFPAY ==
[2024-03-07 10:30] LABS: Hematocrit 40.9 % (42.0-52.0); Hemoglobin 13.9 g/dL (14.0-18.0); Mean Corpuscular Hemoglobin 29.6 pg (26-34); Mean Corpuscular Volume 87.2 fl (80-100); Platelet Count Result 242 k/mm3 (150-375); Red Blood Count 4.69 M/mm3 (4.6-6.20); Red Cell Distribution Width 13.6 % (11.5-14.5); White Blood Count 3.7 K/mm3 (4.5-10.0)
[2024-03-07 10:57] LABS: Iron 76 ug/dL (49-181)
[2024-03-09 12:08] LABS: Alpha-1-Antitrypsin, QN 142 mg/dL (83-199)
[2024-03-12 10:03] LABS: Vitamin B6 20.9 ng/mL (2.1-21.7)
--- OUTSIDE RECORDS SUMMARY | 2024-03-14 13:09 | XMS_ITS | Encounter Summary ---
Author Organization [facility] [employer] [facility] Address [address] [place] [address] Care Team Providers Care Transmission Worker Name Role Phone Unavailable Primary Care Provider Unavailabl e Encounter Details Date Type Department Care Team (Late st Contact Info) Description 06/28/2022 Orders Only [facility] - [place] [address] [place] [address] [place], Ban Leukopenia, unspecified type Social History Tobacco Use Types Packs/Day Years Used Date Smoking Tobacco: Never Smokeless Tobacco: Never Alcohol Use Standard Drinks/Week Comments Yes 0 (1 standard drink = 0.6 oz pur e alcohol) ocassionally Sex and Gender Information Value Date Recorded Sex Assigned at Male 01/10/2024 11:21 PM CDT Gender Identity Male 01/10/2024 11:21 PM CDT Sexual Orientation Straight 01/10/2024 11 :21 PM CDT COVID-19 Exposure Response Date Recorded In the last 10 days, have santi lucio been in contact with someone who was confirmed or suspected to have Coronavirus/COVID-19? No / Unsure 06/27/2022 1:55 PM CDT documented as of this encounter Plan of Treatment Not on file documented as of this encounter Visit Diagnoses Diagnosis Leukopenia, unspecified type documented in this encounter
--- OUTSIDE RECORDS SUMMARY | 2024-03-14 13:09 | XMS_ITS | Encounter Summary ---
Author Organization [facility] Address [address] [place] [address] Care Team Providers Care Care Analyst Name Role Phone Unavailable Primary Care Provider Unavailabl e Encounter Details Date Type Department Care Team (Late st Contact Info) Description 05/06/2023 External Device Data [facility] ABSTRACTION Provider, Abstract NO ADDRESS ON FILE Social History Tobacco Use Types Packs/Day Years Used Date Smoking Tobacco: Never Smokeless Tobacco: Never Alcohol Use Standard Drinks/Week Comments Yes 0 (1 standard drink = 0.6 oz pur e alcohol) ocassionally Sex and Gender Information Value Date Recorded Sex Assigned at Male 01/10/2024 11:21 PM CDT Gender Identity Male 01/10/2024 11:21 PM CDT Sexual Orientation Straight 01/10/2024 11 :21 PM CDT documented as of this encounter Plan of Treatment Not on file documented as of this encounter Visit Diagnoses Not on filedocumented in this encounter
--- OUTSIDE RECORDS SUMMARY | 2024-03-14 13:09 | XMS_ITS | Encounter Summary ---
Author Organization [facility] [employer] [facility] Address [address] [place] [address] Care Team Providers Care Pool Installer Name Role Phone Unavailable Primary Care Provider Unavailabl e Encounter Details Date Type Department Care Team (Late st Contact Info) Description 07/12/2022 Orders Only [facility] Oncology and Hematology - [place] [address] [place] [address] Icenogle, Ban Leukopenia, unspecified type [...] on file documented as of this encounter Procedures Procedure Name Priority Date/Time Associated Diagnosis Comments JAMISON SCREEN W/REFLEX Routine 07/12/2022 9 :41 AM CDT Leukopenia, unspecified type documented in this encounter Results * JAMISON SCREEN W/REFLEX (07/12/2022 9:41 AM CDT) JAMISON SCREEN NEGATIVE NEGATIVE [facility] Comment: JAMISON IFA is a first line screen for detecting the presence of up to approximately 150 autoantibodies in various autoimmune diseases. A negative JAMISON IFA result suggests an JAMISON-associated autoimmune disease is not present at this time, but is not definitive. If there is high clinical suspicion for Sjogren's syndrome, testing for anti-SS-A/Ro antibody should be considered. Anti-Gemma-1 antibody should be considered for clinically suspected inflammatory myopathies. AC-0: Negative International Consensus on JAMISON Patterns (https://doi.org/10.1515/bbsr-3155-1397) For additional information, please refer to http://education.DermLink/faq/PJR676 (This link is being provided for informational/ educational purposes only.) ?? FASTING:NO FASTING: NO Test [facility] [address] [place], [place] ??[address] Celina Robb MD Blood 07/12/2022 9:41 AM CDT 08/14/2022 2:15 PM CDT Derik Milton MD CHEMISTRY ORDERABLES [facility] [phone] [facility] [address] [place] [address] documented in this encounter Visit Diagnoses Diagnosis Leukopenia, unspecified type documented in this encounter
--- OUTSIDE RECORDS SUMMARY | 2024-03-14 13:09 | XMS_ITS | Encounter Summary ---
Author Organization [facility] Address [address] [place] [address] Care Team Providers Care Medical Director Occupational Health Name Role Phone Ha Jeter MD Primary Care Provider [phone] Encounter Details Date Type Department Care Team (Late st Contact Info) Description 10/22/2023 External Device Data [facility] ABSTRACTION Provider, Abstract [...] Diagnoses Not on filedocumented in this encounter Care Teams Medical Director Occupational Health Relationship Specialty Start Date End Date Ha Jeter MD [address] [place] [phone] PCP - General Family Practice 09/05/23 documented as of this encounter
--- OUTSIDE RECORDS SUMMARY | 2024-03-14 13:09 | XMS_ITS | Encounter Summary ---
Author Organization [facility] Address [address] [place] [address] Care Team Providers Care Receptionist Scheduler Name Role Phone Unavailable Primary Care Provider Unavailabl e Encounter Details Date Type Department Care Team (Late st Contact Info) Description 05/03/2023 External Device Data [facility] ABSTRACTION Provider, Abstract [...]
--- OUTSIDE RECORDS SUMMARY | 2024-03-14 13:09 | XMS_ITS | Encounter Summary ---
Author Organization [facility] [employer] [facility] Address [address] [place] [address] Care Team Providers Care Drafting Supervisor Name Role Phone Ha Jeter MD Primary Care Provider Encounter Details Date Type Department Care Team (Late st Contact Info) Description 01/02/2024 Orders Only [facility] Oncology and Hematology - [place] [address] [facility] [address] [place] [address] Derik Milton MD [address] [facility] [address] [place] [address] Iron deficiency anemia, unspecified iron deficiency anemia type (Primary Dx) Social History Tobacco Use Types Packs/Day Years [...] as of this encounter Plan of Treatment Scheduled Orders Name Type Priority Associated Diagnoses Orde r Schedule BASIC METABOLIC PANEL Lab Routine Iron deficiency anemia, unspecified iron deficiency anemia type Expected: 01/02/2024, Expires: 01/01/2025 CBC WITH DIFFERENTIAL Lab Routine Iron deficiency anemia, unspecified iron deficiency anemia type Expected: 01/02/2024, Expires: 01/01/2025 IRON, TIBC, AND PERCENT SATURATION Lab Routine Iron deficiency anemia, unspecified iron deficiency anemia type Expected: 01/02/2024, Expires: 01/01/2025 FERRITIN Lab Routine Iron deficiency anemia, unspecified iron deficiency anemia type Expected: 01/02/2024, Expires: 01/01/2025 VITAMIN B12 AND FOLATE Lab Routine Iron deficiency anemia, unspecified iron deficiency anemia type Expected: 01/02/2024, Expires: 01/01/2025 documented as of this encounter Visit Diagnoses Diagnosis Iron deficiency anemia, unspecified iron deficiency anemia type- Primary documented in this encounter Care Teams Drafting Supervisor Relationship Specialty Start Date End Date Ha Jeter MD [address] [place] [phone] PCP - General Family Practice 09/05/23 documented as of this encounter
--- OUTSIDE RECORDS SUMMARY | 2024-03-14 13:09 | XMS_ITS | Encounter Summary ---
Author Organization [facility] Address [address] [facility] Attn: Epic Prelude ADT [place]Z [address] Care Team Providers Care Driller And Broacher Name Role Phone Unavailable Primary Care Provider Unavailabl e Encounter Details Date Type Department Care Team (Latest Contact Info) Description 06/27/2022 Travel Social History Tobacco Use Types Packs/Day Years [...]
--- OUTSIDE RECORDS SUMMARY | 2024-03-14 13:09 | XMS_ITS | Encounter Summary ---
Author Organization [facility] [employer] [facility] Address [address] [place] [address] Care Team Providers Care Commodity Loan Clerk Name Role Phone Ha Jeter MD Primary Care Provider [phone] Encounter Details Date Type Department Care Team (Late st Contact Info) Description 01/06/[address] [facility] Oncology and Hematology - [place] [address] [place] [address] [facility] [address] [place] [address] Derik Milton MD [address] [facility] [address] [place] [address] Social History Tobacco Use Types Packs/Day Years [...] Procedure Name Priority Date/Time Associated Diagnosis Comments BASIC METABOLIC PANEL Routine 01/03/2024 1:44 PM CDT documented in this encounter Results * BASIC METABOLIC PANEL (01/03/2024 1:44 PM CDT) Blood Derik Milton MD CHEMISTRY ORDERABLES documented in this encounter Visit Diagnoses Not on filedocumented in this encounter Care Teams Commodity Loan Clerk Relationship Specialty Start Date End Date Ha Jeter MD [address] [place] [phone] PCP - General Family Practice 09/05/23 documented as of this encounter
--- OUTSIDE RECORDS SUMMARY | 2024-03-14 13:09 | XMS_ITS | Clinical Summary ---
Author Organization [facility]3] Yosef lazcano Luis Address [address] [place] [address] Care Team Providers Care Teacher Of The Hearing Impaired Name Role Phone Ha Jeter MD Primary Care Provider [phone] Allergies No known active allergies Medications Medication Sig Dispensed Refills Start Date End Date Status Zinc Gluconate 30 mg Tablet Take by mouth. Over the counter Active ferrous sulfate 325 mg (65 mg iron) tablet Take 1 Tablet (325 mg) by mouth daily. 90 Tablet 3 09/05/2023 Active omega-3 fatty acids-fish oil 300-1,000 mg Capsule Take 2 Capsules by mouth daily. Active Active Problems No known active problems Encounters Date Type Department Care Team Description 02/04/2024 Telephone [facility]3] Oncology and Hematology - [place] [address] [place] [address] Derik Milton MD returning phone call 01/20/2024 External Device Data ST[facility] ABSTRACTION Provider, Abstract 01/20/2024 Orders Only [facility]3] Oncology and Hematology - [place] [address] [place] [address] Derik Milton MD 01/13/2024 Orders Only [facility]3] Oncology and Hematology - [place] [address] [place] [address] Derik Milton MD 01/07/2024 2:00 PM CDT Office Visit [facility]3] Oncology and Hematology - [place] [address] [place] [address] Derik Milton MD Abdominal discomfort (Primary Dx); Testosterone deficiency 01/06/2024 Orders Only [facility]3] Oncology and Hematology [facility] [address] [place] [address] Derik Milton MD 01/02/2024 Orders Only [facility]3] Oncology and Hematology - [place] [address] [place] [address] Derik Milton MD Iron deficiency anemia, unspecified iron deficiency anemia type (Primary Dx) from Last 3 Months Family History Relation Name Status Comments Brother 1 Alive Brother 2 Alive Father Alive Mother Alive Sister 1 Alive Sister 2 Alive Sister 3 Alive Social History Tobacco Use Types Packs/Day Years Used Date Smoking Tobacco: Never Smokeless Tobacco: Never Alcohol Use Standard Drinks/Week Comments Yes 0 (1 standard drink = 0.6 oz pur e alcohol) ocassionally Sex and Gender Information Value Date Recorded Sex Assigned at Male 01/10/2024 11:21 PM CDT Gender Identity Male 01/10/2024 11:21 PM CDT Sexual Orientation Straight 01/10/2024 11 :21 PM CDT Last Filed Vital Signs Vital Sign Reading Time Taken Comments Blood Pressure 115/82 01/07/2024 2:04 PM CDT Pulse 73 01/07/2024 2:04 PM CDT Temperature 36.8 ??C (98.2 ??F) 01/07/2024 2:04 PM CD T Respiratory Rate 16 01/07/2024 2:04 PM CDT Oxygen Saturation 98% 01/07/2024 2:04 PM CDT Inhaled Oxygen Concentration - - Weight 72.7 kg (160 lb 3.2 oz) 01/07/2024 2:04 P M CDT Height 170.2 cm (5' 7 ) 06/27/2022 1:58 PM CDT Body Mass Index 25.09 06/27/2022 1:58 PM CDT Plan of Treatment Health Maintenance Due Date Last Done Comments Pre-Diabetes and Diabetes Screening 1984 DTAP/TDAP/TD VACCINES (1 - Tdap) 08/27/2003 HEPATITIS B VACCINES (1 of 3 - 19+ 3-dose series) 08/27/2003 INFLUENZA VACCINE (#1) 2023 HPV VACCINES Aged Out No longer eligi ble based on patient's age to complete this topic PNEUMOCOCCAL VACCINE 0-64 YEARS Aged Out No longer eligible based on patient's age to complete this topic Procedures Procedure Name Priority Date/Time Associated Diagnosis Comments US ABDOMEN COMPLETE Routine 01/18/2024 8:26 AM CDT TESTOSTERONE FREE Routine 01/07/2024 8:21 AM CDT BASIC METABOLIC PANEL Routine 01/03/2024 1:44 PM CDT from Last 3 Months Results * US ABDOMEN COMPLETE (01/18/2024 8:26 AM CDT) Anatomical Region Laterality Modality Abdomen Other Derik Milton MD US ORDERABLES * TESTOSTERONE FREE (01/07/2024 8:21 AM CDT) Blood Derik Milton MD CHEMISTRY ORDERABLES * BASIC METABOLIC PANEL (01/03/2024 1:44 PM CDT) Blood Derik Milton MD CHEMISTRY ORDERABLES from Last 3 Months Care Teams Teacher Of The Hearing Impaired Relationship Specialty Start Date End Date Ha Jeter MD [address] [place] [phone] PCP - General Family Practice 09/05/23
--- OUTSIDE RECORDS SUMMARY | 2024-03-14 13:09 | XMS_ITS | Encounter Summary ---
Author Organization [facility] [employer] [facility] Address [address] [place] [address] Care Team Providers Care Operations Research Analyst Name Role Phone Ha Jeter MD Primary Care Provider [phone] Encounter Details Date Type Department Care Team (Late st Contact Info) Description 09/09/2023 Orders Only [facility] Oncology and Hematology - [place] [address] [place] [address] Renetta Haney FNP [address] [facility] [address] [place] [address] Social History Tobacco Use Types Packs/Day Years [...] Procedure Name Priority Date/Time Associated Diagnosis Comments CBC WITH DIFFERENTIAL Routine 09/07/2023 12:01 PM CDT documented in this encounter Results * CBC WITH DIFFERENTIAL (09/07/2023 12:01 PM CDT) Blood Renetta Tomac [facility] ORDERABLE S documented in this encounter Visit Diagnoses Not on filedocumented in this encounter Care Teams Operations Research Analyst Relationship Specialty Start Date End Date Ha Jeter MD [address] [place] [phone] PCP - General Family Practice 09/05/23 documented as of this encounter
--- OUTSIDE RECORDS SUMMARY | 2024-03-14 13:09 | XMS_ITS | Encounter Summary ---
Author Organization [facility] [employer] [facility] Address [address] [place] [address] Care Team Providers Care Furnace Combination Analyst Name Role Phone Ha Jeter MD Primary Care Provider [phone] Reason for Visit * Reason Onset Date Comments returning phone call 02/04/2024 Encounter Details Date Type Department Care Team ([facility] st Contact Info) Description 02/04/[address] [facility] Oncology and Hematology - [place] [address] [place] [address] [address] [place] [address] Derik Milton MD [address] [facility] [address] [place] [address] returning phone call Social History Tobacco Use Types Packs/Day Years [...] on filedocumented in this encounter Care Teams Furnace Combination Analyst Relationship Specialty Start Date End Date Ha Jeter MD [address] [place] [address] [address] [place] [address] PCP - General Family Practice 09/05/23 documented as of this encounter
--- OUTSIDE RECORDS SUMMARY | 2024-03-14 13:09 | XMS_ITS | Encounter Summary ---
Author Organization [facility] Address [address] [place] [address] Care Team Providers Care Django Developer Name Role Phone Unavailable Primary Care Provider Unavailabl e Encounter Details Date Type Department Care Team (Late st Contact Info) Description 03/02/2023 External Device Data [facility] ABSTRACTION Provider, Abstract [...]
--- OUTSIDE RECORDS SUMMARY | 2024-03-14 13:09 | XMS_ITS | Encounter Summary ---
Author Organization [facility] [employer] [facility] Address [address] [place] [address] Care Team Providers Care Advertising Production Manager Name Role Phone Unavailable Primary Care Provider Unavailabl e Reason for Visit * Reason Comments Establish Care Encounter Details Date Type Department Care Team (Late st Contact Info) Description 06/27/2022 1:30 PM CDT Office Visit [facility] Oncology and Hematology - [place] [address] [place] [address] [facility] [address] [place] [address] Derik Milton MD [address] [place] [facility] [address] [place] [address] Leukopenia, unspecified type (Primary Dx) Social History Tobacco Use [...] PM CDT documented as of this encounter Last Filed Vital Signs Vital Sign Reading Time Taken Comments Blood Pressure 120/72 06/27/2022 1:58 PM CDT Pulse 68 06/27/2022 1:58 PM CDT Temperature 36.7 ??C (98.1 ??F) 06/27/2022 1:58 PM CD T Respiratory Rate 10 06/27/2022 1:58 PM CDT Oxygen Saturation 100% 06/27/2022 1:58 PM CDT Inhaled Oxygen Concentration - - Weight 68.9 kg (152 lb) 06/27/2022 1:58 PM CDT Height 170.2 cm (5' 7 ) 06/27/2022 1:58 PM CDT Body Mass Index 23.81 06/27/2022 1:58 PM CDT documented in this encounter Progress Notes * Derik Milton MD - 06/27/2022 2:47 PM CDT Hematology-oncology consult Note Requesting Physician Ha Jeter MD Primary Care Physician No primary care provider on file. Problem list There is no problem list on file for this patient. Previous TREATMENT ? Measurable Disease ? Reason for Visit Maria E Louise is a 36 y.o. male who was referred for consultation for leukopenia. History of present illness This is a pleasant 36-year-old male from [facility] moved 7 years ago. He was found to have leukopenia in February 2022 with a white blood cell count of 3.5. He had COVID infection in January 2022. Oma had previous COVID infection in 2020. He denies any night sweats fever chills and weight loss.He slowly started feeling better after the COVID infection. Denies any bleeding and bruising. Denies any liver disease. No other new complaints. Past Medical History Past Medical History: Diagnosis Date TB lung, latent History of COVID infection x2 Surgical History No past surgical history on file. Medications No current outpatient medications on file. No current facility-administered medications for this visit. Allergies No Known Allergies Immunizations: There is no immunization history on file for this patient. Family History No family history on file. Social History Social History Tobacco Use Smoking status: Never Smokeless tobacco: Never Substance Use Topics Alcohol use: Yes Comment: ocassionally Review of Systems Constitutional: Patient did not mention fever; no night sweats; no anorexia; no weight loss; no fatique NEENT: Patient did not mention headache; no change in vision; no change in hearing; no sore throat;no dysphagia Respiratory: Patient did not mention shortness of breath; no pleuritic chest pain; no cough; no hemoptysis Cardiac: Patient did not mention cardiac-like chest pain; no palpitations; no orthopnea; no PND; noDOE GI: Patient did not mention abdominal pain; no nausea; no vomiting; no diarrhea; no hematochezia; no melena : Patient did not mention dysuria; no frequency; no hesitancy; no hematuria PAPER FEEDER: Musculosketetal: Patient did not mention bone pain; no arthralgia; no joint swelling; no myalgia; Skin: Patient did not mention pruritis; no rash; no petechiae; no ecchymoses Endocrine: Patient did not mention polydipsia; no polyuria; no unusual weight gain Neuro: Patient did not mention headache; no change in vision; no sensory changes; no muscle weakness; no confusion; no seizures Psych: Patient did not mention anxiety; no depression; Physical Exam Vitals: As per nursing note Constitutional: Well developed, well nourished, no acute distress, non-toxic appearance Teeth and gum. No signs of infection or swelling. Eyes: PERRL, conjunctiva normal HEENT: Atraumatic, external ears normal, nose normal, oropharynx moist, no pharyngeal exudates. no sinus tenderness Neck- normal range of motion, no tenderness, supple Respiratory: No respiratory distress, normal breath sounds, no rales, no wheezing Cardiovascular: Normal rate, normal rhythm, no murmurs, no gallops, no rubs GI: Soft, nondistended, normal bowel sounds, nontender, no splenomegaly, no hepatomegaly, no mass, no rebound, no guarding : No costovertebral angle tenderness Musculoskeletal: No edema, no tenderness, no deformities. Back- no tenderness Integument: Well hydrated, no rash, Digits and nails inspection normal Lymphatic: No lymphadenopathy noted Neurologic: Alert & oriented x 3, CN 2-12 normal, normal motor function, normal sensory function, no focal deficits noted Psychiatric: Speech and behavior appropriate ? labs No results found for this or any previous visit (from the past 24 hour(s)). Labs from February 2022 showed WBC 3.5 hemoglobin 14.2 platelet 296,000 Pathology ? Imaging & Other Studies Performance Status? Assessment / Plan: ? Mild leukopenia. Patient is a pleasant 36-year-old male from [facility] moved 7 years ago. He has a history of COVID infection initially in 2020 and then February 2022. His labs from February showed WBC count of 3.5. He denies any previous history of lymphoproliferative disorders. He is very healthy otherwise. He denies any night sweats fever chills and weight loss. He is feeling better after COVIDinfection. On examination there is no evidence of lymphadenopathy and hepatosplenomegaly. I have discussed the differential diagnosis of leukopenia that include leukopenia secondary to infections, nutritional deficiencies, autoimmune leukopenia, liver and spleen disorders and bone marrow disorders. There is also possibility of benign essential leukopenia which is not uncommon in -[place] ancestry. At this time we will repeat labs including CBC with differential, CMP, JAMISON, iron studies, vitamin B12 and folic acid level. Based on the initial testing we will decide about further testing that might include abdominal ultrasound, flow cytometric analysis and bone marrow biopsy. I have answered all the questions to patient's satisfaction. Thank you very much for allowing me to participate in Maria E Louise's evaluation and management. Please feel free to contact if I can be of any further assistance in your patient???s care requiring hematology or oncology evaluation. Sincerely, ? ? Derik Milton M.D. cell TOBACCO COUNSELING He is not a tobacco user. Derik Milton MD ,06/27/2022 2:47 PM ? Total time spent 60 minutes, two third of the total time spent counseling patient [id number]. CC:?Ha Jeter MD documented in this encounter Plan of Treatment Scheduled Orders Name Type Priority Associated Diagnoses Orde r Schedule CBC WITH DIFFERENTIAL Lab Stat Leukopenia, unspecified type Expected: 06/27/2022, Expires: 06/28/2023 COMPREHENSIVE METABOLIC PANEL Lab Stat Leukopenia, unspecified type Expected: 06/27/2022, Expires: 06/28/2023 documented as of this encounter Procedures Procedure Name Priority Date/Time Associated Diagnosis Comments VITAMIN B12 AND FOLATE Routine 08/14/2022 2:13 PM CDT Leukopenia, unspecified type IRON, TIBC, AND PERCENT SATURATION Routine 08/14/2022 2:13 PM CDT Leukopenia, unspecified type FERRITIN Routine 08/14/2022 2:13 PM CDT Leukopenia, unspecified type documented in this encounter Results * VITAMIN B12 AND FOLATE (08/14/2022 2:13 PM CDT) Pathologist [facility] VITAMIN B12 898 200 - 1100 pg/mL [facility] FOLATE, SERUM 21.5 ng/mL [facility] Comment: ? Reference Range ? Low: ? <3.4 ? Borderline: ?3.4-5.4 ? Normal: ?>5.4 FASTING:NO FASTING: NO Test Performed at: [address] ??[phone] Celina Robb MD Blood 08/14/2022 2:13 PM CDT 08/14/2022 2:15 PM CDT Derik Milton MD CHEMISTRY ORDERABLES [facility] [phone] [address] * (ABNORMAL) IRON, TIBC, AND PERCENT SATURATION (08/14/2022 2:13 PM CDT) [facility] IRON 57 50 - 180 mcg/dL [facility] TIBC 295 250 - 425 mcg/dL (calc) [facility] IRON % SATURATION 19(L) 20 - 48 % (calc) [facility] Comment: FASTING:NO FASTING: NO Test Performed at: [facility] [address] [place] [address] ??[phone] Celina Robb MD Blood 08/14/2022 2:13 PM CDT 08/14/2022 2:15 PM CDT Derik Milton MD CHEMISTRY ORDERABLES Performing Organization Address [facility] Co de Phone Number [facility] [phone] [facility] [address] * FERRITIN (08/14/2022 2:13 PM CDT) FERRITIN 41 38 - 380 ng/mL [facility] Comment: FASTING:NO FASTING: NO Test Performed at: [facility] ??[phone] Celina Robb MD Blood 08/14/2022 2:13 PM CDT 08/14/2022 2:15 PM CDT Derik Milton MD CHEMISTRY ORDERABLES Performing Organization Address [facility] Co de Phone Number [facility] [phone] [facility] [address] * JAMISON SCREEN W/REFLEX (07/12/2022 9:41 AM CDT) JAMISON SCREEN NEGATIVE NEGATIVE [facility] Comment: JAMISON IFA is a first line [...] AC-0: Negative International Consensus on JAMISON Patterns (https://doi.org/10.1515/dbrl-4892-2303) For additional information, please refer to http://education.Ailvxing net/faq/CCN627 (This link is being provided for informational/ educational purposes only.) ?? FASTING:NO FASTING: NO Test Performed at: [facility] [address] [place], [place] ??[phone] Celina Robb MD Blood 07/12/2022 9:41 AM CDT 08/14/2022 2:15 PM CDT Derik Milton MD CHEMISTRY ORDERABLES [facility] [phone] [facility] [address] [place] [address] documented in this encounter Visit Diagnoses Diagnosis Leukopenia, unspecified type- Primary documented in this encounter
--- OUTSIDE RECORDS SUMMARY | 2024-03-14 13:09 | XMS_ITS | Encounter Summary ---
Author Organization [facility] [employer] [facility] Address [address] [place] [address] Care Team Providers Care Care Administrative Tech Name Role Phone Ha Jeter MD Primary Care Provider [phone] Encounter Details Date Type Department Care Team (Late st Contact Info) Description 01/20/2024 Orders Only [facility] Oncology and Hematology - [place] [address] [place] [address] [facility] [address] [place] [address] Derik Milton MD [address] [facility] [address] [place] [address] Social History Tobacco Use Types [...] ABDOMEN COMPLETE Routine 01/18/2024 8:26 AM CDT documented in this encounter Results * US ABDOMEN COMPLETE (01/18/2024 8:26 AM CDT) Anatomical Region Laterality Modality Abdomen Other Derik Milton MD US ORDERABLES documented in this encounter Visit Diagnoses Not on filedocumented in this encounter Care Teams Care Administrative Tech Relationship Specialty Start Date End Date Ha Jeter MD [address] [place] [phone] PCP - General Family Practice 09/05/23 documented as of this encounter
--- OUTSIDE RECORDS SUMMARY | 2024-03-14 13:09 | XMS_ITS | Encounter Summary ---
Author Organization [facility] [employer] [facility] Address [address] [place] [address] Care Team Providers Care Supervisor Filling And Packing Name Role Phone Ha Jeter MD Primary Care Provider [phone] Encounter Details Date Type Department Care Team (Late st Contact Info) Description 01/13/[address] [facility] Oncology and Hematology - [place] [address] [facility] [address] [place] [address] Derik Milton MD [address] [facility] [address] [place] [address] Social History Tobacco Use Types [...] Procedure Name Priority Date/Time Associated Diagnosis Comments TESTOSTERONE FREE Routine 01/07/2024 8:21 AM CDT documented in this encounter Results * TESTOSTERONE FREE (01/07/2024 8:21 AM CDT) Blood Derik Mliton MD CHEMISTRY ORDERABLES documented in this encounter Visit Diagnoses Not on filedocumented in this encounter Care Teams Supervisor Filling And Packing Relationship Specialty Start Date End Date Ha Jeter MD [address] [place] [phone] PCP - General Family Practice 09/05/23 documented as of this encounter
--- OUTSIDE RECORDS SUMMARY | 2024-03-14 13:09 | XMS_ITS | Encounter Summary ---
Author Organization [facility] [employer] [facility] Address [address] [place] [address] Care Team Providers Care General Dentist/Owner Name Role Phone Unavailable Primary Care Provider Unavailabl e Encounter Details Date Type Department Care Team (Late st Contact Info) Description 06/29/2022 Abstract [facility] Oncology and Hematology - [place] [address] [place] [address] Ban Rueda Social History Tobacco Use Types Packs/Day Years [...]
--- OUTSIDE RECORDS SUMMARY | 2024-03-14 13:09 | XMS_ITS | Encounter Summary ---
Author Organization [facility] Address [address] [facility] Attn: Epic Prelude ADT REESE JIMÉNEZ [address] Care Team Providers Care Braid Cutter Name Role Phone Unavailable Primary Care Provider Unavailabl e Encounter Details Date Type Department Care Team (Latest Contact Info) Description 07/19/2022 Travel Social History Tobacco Use Types Packs/Day [...] suspected to have Coronavirus/COVID-19? No / Unsure 07/19/2022 12:03 PM CDT documented as of this encounter Plan of Treatment Not on file documented as of this encounter Visit Diagnoses Not on filedocumented in this encounter
--- OUTSIDE RECORDS SUMMARY | 2024-03-14 13:09 | XMS_ITS | Encounter Summary ---
Author Organization [facility] [employer] [facility] Address [address] [place] [address] Care Team Providers Care Cushion Spring Assembler Name Role Phone Unavailable Primary Care Provider Unavailabl e Reason for Visit * Reason Comments Follow Up Encounter Details Date Type Department Care Team (Late st Contact Info) Description 07/19/2022 2:[address] PM CD[address] Video Visit [facility] Oncology and Hematology - [place] [address] [place] [address] [facility] [address] [place] [address] Derik Milotn MD [address] [facility] [address] [place] [address] Iron deficiency anemia, unspecified iron [...] PM CDT documented as of this encounter Progress Notes * Derik Milton MD - 07/19/2022 2:17 PM CDT HEMATOLOGY / ONCOLOGY PROGRESS NOTE Patient Identification: Name: Maria E Louise Age: 36 y.o. Sex: male : 1985 DIAGNOSIS Leukopenia CURRENT TREATMENT Expectant TREATMENT HISTORY SUBJECTIVE This is a video visit with patient. He denies any fevers and chills. Denies any new lung bumps or lymphadenopathy. Denies any melena hematochezia. No bleeding. No other new complaints. Review of system Constitutional: Patient did not mention fevers, sweats, fatigue, malaise, weight loss HEENT: Patient did not mention sinus congestion, hearing or vision problems Respiratory: Patient did not mention cough, dyspnea, wheeze Cardiovascular: Patient did not mention chest pain, exertional chest pressure/discomfort, nausea, syncope, shortness of breath GI: Patient did not mention constipation, diarrhea, dsyphagia, reflux symptoms, vomiting, melena : Patient did not mention dysuria, frequency, incontinence, urgency Integumentary system: no lymphadenopathy, sweats, flushing Musculoskeletal: Patient not mention: myalgia, arthralgia Neurological: Patient did not mention blurry or disturbed vision, numbness/weakness, dizziness Skin: No lumps, bumps or rashes. Objective: Vital signs in last 24 hours: As per nursing note Exam: This is a video visit with patient. [facility] Labs from July 03 showed JAMISON negative creatinine 0.9 total bilirubin 0.3 alkaline phosphatase 137 vitamin B12 709 iron 37 saturation 12% ferritin 32 hemoglobin 13.8 WBC 4.1 MCV 87.7 platelet 255,000. @IMAGEIMP@ Assessment: Plan: There are no problems to display for this patient. Mild leukopenia. JAMISON came back negative. Vitamin B12 normal. Alkaline phosphatase slightly elevatedbut rest of the liver enzymes are normal. Iron level is slightly on the low side. Iron deficiency anemia. We will check Hemoccult stool testing and will start him on ferrous mg twice daily with vitamin C 500 mg daily. We will repeat labs again in 3 months. Based on therepeat lab will decide about abdominal ultrasound. Elevated alkaline phosphatase. Repeat labs in 3 months. Based on the repeat labs we will decide about abdominal ultrasound. ? TOBACCO COUNSELING He is not a tobacco user. 07/19/2022 Derik Milton MD Patient's identity confirmed yes Patient gave verbal consent to have these services billed to their insurance and expressed understanding that co-insurance and deductible may apply: yes This encounter was completed via two-way synchronous audio and video communication. documented in this encounter Plan of Treatment Not on file documented as of this encounter Visit Diagnoses Diagnosis Iron deficiency anemia, unspecified iron deficiency anemia type- Primary documented in this encounter
--- OUTSIDE RECORDS SUMMARY | 2024-03-14 13:09 | XMS_ITS | Encounter Summary ---
Author Organization [facility] Address [address] [place] [address] Care Team Providers Care Mechanical Assembly Technician Name Role Phone Unavailable Primary Care Provider Unavailabl e Encounter Details Date Type Department Care Team (Late st Contact Info) Description 05/31/2023 External Device Data [facility] ABSTRACTION Provider, Abstract [...]
--- OUTSIDE RECORDS SUMMARY | 2024-03-14 13:09 | XMS_ITS | Encounter Summary ---
Author Organization [facility] Address [address] [place] [address] Care Team Providers Care Vice President Regulatory Name Role Phone Ha Jeter MD Primary Care Provider [phone] Encounter Details Date Type Department Care Team (Late st Contact Info) Description 09/17/2023 External Device Data [facility] ABSTRACTION Provider, Abstract [...] on filedocumented in this encounter Care Teams Vice President Regulatory Relationship Specialty Start Date End Date Ha Jeter MD [address] [place] [phone] PCP - General Family Practice 09/05/23 documented as of this encounter
--- OUTSIDE RECORDS SUMMARY | 2024-03-14 13:09 | XMS_ITS | Encounter Summary ---
Author Organization [facility] Address [address] [place] [address] Care Team Providers Care Professor Of Historical Theology Name Role Phone Ha Jeter MD Primary Care Provider [phone] Encounter Details Date Type Department Care Team (Late st Contact Info) Description 11/26/2023 External Device Data [facility] ABSTRACTION Provider, Abstract [...] on filedocumented in this encounter Care Teams Professor Of Historical Theology Relationship Specialty Start Date End Date Ha Jeter MD [address] [place] [phone] PCP - General Family Practice 09/05/23 documented as of this encounter
--- OUTSIDE RECORDS SUMMARY | 2024-03-14 13:09 | XMS_ITS | Encounter Summary ---
Author Organization [facility] [employer] [facility] Address [address] [place] [address] Care Team Providers Care Hop Sorter Name Role Phone Ha Jeter MD Primary Care Provider [phone] Reason for Visit * Reason Comments Anemia Encounter Details Date Type Department Care Team (Late st Contact Info) Description 09/05/2023 2:00 PM CDT Office Visit [facility] Oncology and Hematology - [place] [address] [place] [address] Renetta Haney FNP [address] [phone] Iron deficiency anemia, unspecified iron deficiency anemia type (Primary Dx); Leukopenia, unspecified type Social History Tobacco Use Types Packs/Day Years Used Date Smoking Tobacco: Never Smokeless Tobacco: Never Tobacco Cessation:Counseling Given: Not Answered Alcohol Use Standard Drinks/Week Comments Yes 0 [...] Sign Reading Time Taken Comments Blood Pressure 127/67 09/05/2023 2:14 PM CDT Pulse 82 09/05/2023 2:14 PM CDT Temperature 36.2 ??C (97.2 ??F) 09/05/2023 2:14 PM CD T Respiratory Rate 15 09/05/2023 2:14 PM CDT Oxygen Saturation 98% 09/05/2023 2:14 PM CDT Inhaled Oxygen Concentration - - Weight 74 kg (163 lb 3.2 oz) 09/05/2023 2:14 PM CDT Height - - Body Mass Index 25.56 06/27/2022 1:58 PM CDT documented in this encounter Progress Notes * Renetta Haney FNP - 09/05/2023 3:42 PM CDT Hematology / Oncology Progress Note Patient Identification: Name: Maria E Louise Age: 38 y.o. Sex: male : 1985 Diagnosis: Benign Essential Leukopenia Iron Deficiency Anemia Current Treatment: Iron 65mg daily Treatment History: Subjective: Patient returns to the clinic for a follow up visit. He has not been seen for over a year and patient states he was not told to follow up. He reports taking iron 1x a day for about a month. He is taking B12 intermittently. He denies any frequent illnesses but has been sick with COVID 5x since 2020.Denies any lymphadenopathy, or bleeding. Tobacco Counseling: He is not a tobacco/nicotine user. Past Medical History: Past Medical History: Diagnosis Date TB lung, latent Past Surgical History: No past surgical history on file. Allergies: No Known Allergies Family History: No family history on file. Review of Systems All systems reviewed & are unremarkable except as noted in HPI and above Objective: Vital signs in last 24 hours: As per nursing note Physical Exam Vitals reviewed. Constitutional: General: He is awake. Appearance: Normal appearance. He is normal weight. HENT: Head: Normocephalic and atraumatic. Mouth/Throat: Mouth: Mucous membranes are moist. Pharynx: Oropharynx is clear. Eyes: Pupils: Pupils are equal, round, and reactive to light. Cardiovascular: Rate and Rhythm: Normal rate and regular rhythm. Pulses: Normal pulses. Heart sounds: Normal heart sounds. Pulmonary: Effort: Pulmonary effort is normal. Breath sounds: Normal breath sounds. Abdominal: General: Abdomen is flat. Bowel sounds are normal. Palpations: Abdomen is soft. There is no hepatomegaly or splenomegaly. Musculoskeletal: General: Normal range of motion. Cervical back: Normal range of motion. Skin: General: Skin is warm and dry. Neurological: General: No focal deficit present. Mental Status: He is alert and oriented to person, place, and time. Pathology: Imaging: Labs: 07/03/22 JAMISON negative creatinine 0.9 total bilirubin 0.3 alkaline phosphatase 137 vitamin B12 709 iron 37 saturation 12% ferritin 32 hemoglobin 13.8 WBC 4.1 MCV 87.7 platelet 255,000. 08/03/23 WBC 4.1, Hgb 13.7, Hct 41.7, Plt 259, Iron 45 % sat 16 WBC B12 804 Alk Phos 94 Assessment: Plan: Benign Essential Leukopenia Past work up for leukopenia has come back negative. JAMISON came back negative. Vitamin B12 normal. Iron level is slightly on the low side. Patient is fairly asymptomatic. Iron Deficiency Anemia Vitamin B12 normal. Iron studies continue to be low. I have suggested repeating iron studies today now that patient has been on iron supps for about 1 month. Will decide on infusion based on repeat labs Elevated alkaline phosphatase Resolved. Follow up in 4 months HERO Jc-Roberto, 09/05/2023, 3:44 PM Hematology Oncology Nurse Practitioner [facility] Collaborating Physician: Dr. Derik Milton On the day of this visit I spent 28 minutes providing care to this patient including Preparing to see the patient, Obtaining and/or reviewing separately obtained history, Counseling and educating thepatient/family/caregiver, Ordering medications, tests or procedures, and Documenting clinical information in the medical record documented in this encounter Plan of Treatment Scheduled Orders Name Type Priority Associated Diagnoses Orde r Schedule CBC WITH DIFFERENTIAL Lab Routine Iron deficiency anemia, unspecified iron deficiency anemia type Leukopenia, unspecified type Expected: 09/05/2023, Expires: 09/04/2024 FERRITIN Lab Routine Iron deficiency anemia, unspecified iron deficiency anemia type Leukopenia, unspecified type Expected: 09/05/2023, Expires: 09/04/2024 IRON, TIBC, AND PERCENT SATURATION Lab Routine Iron deficiency anemia, unspecified iron deficiency anemia type Leukopenia, unspecified type Expected: 09/05/2023, Expires: 09/04/2024 BASIC METABOLIC PANEL Lab Routine Iron deficiency anemia, unspecified iron deficiency anemia type Leukopenia, unspecified type Expected: 09/05/2023, Expires: 09/04/2024 VITAMIN B12 AND FOLATE Lab Routine Iron deficiency anemia, unspecified iron deficiency anemia type Leukopenia, unspecified type Expected: 09/05/2023, Expires: 09/04/2024 documented as of this encounter Visit Diagnoses Diagnosis Iron deficiency anemia, unspecified iron deficiency anemia type- Primary Leukopenia, unspecified type documented in this encounter Care Teams Hop Sorter Relationship Specialty Start Date End Date Ha Jeter MD [address] [place] [phone] PCP - General Family Practice 09/05/23 documented as of this encounter
--- OUTSIDE RECORDS SUMMARY | 2024-03-14 13:09 | XMS_ITS | Encounter Summary ---
Author Organization [facility] Address [address] [place] [address] Care Team Providers Care Accounting Systems Manager Name Role Phone Ha Jeter MD Primary Care Provider [phone] Reason for Referral * Radiology Services (Routine) - Closed Specialty Diagnoses / Procedures Referred By Contac t Referred To Contact Diagnoses Abdominal discomfort Procedures US ABDOMEN COMPLETE Derik Milton MD [address] [place] [phone] [place] [address] Referral ID Status Reason Start Date Expiration Date V isits Requested Visits Authorized [id number] Closed [facility] CTS 01/07/2024 02/06/2025 1 1 Reason for Visit * Reason Comments Follow Up Encounter Details Date Type Department Care Team (Late st Contact Info) Description 01/07/2024 2:00 PM CDT Office Visit [facility] Oncology and Hematology [place] [id number] [facility] [address] [place] [address] Derik Milton MD [address] [place] [phone] Abdominal discomfort (Primary Dx); Testosterone deficiency Social History Tobacco Use Types Packs/Day Years [...] oz) 01/07/2024 2:04 P M CDT Height - - Body Mass Index 25.09 06/27/2022 1:58 PM CDT documented in this encounter Progress Notes * Derik Milton MD - 01/07/2024 3:03 PM CDT HEMATOLOGY / ONCOLOGY PROGRESS NOTE Patient Identification: Name: Maria E Louise Age: 38 y.o. Sex: male : 1985 DIAGNOSIS Leukopenia CURRENT TREATMENT Expectant TREATMENT HISTORY SUBJECTIVE Patient came to the office for follow-up visit. He has multiple nonspecific complaints including tiredness and fatigue occasional dysuria, bloating right upper quadrant pain peripheral neuropathy involving feet and poor appetite. He has lost 3 pound weight. No other new complaint. Review of system Constitutional: Patient did not mention fevers, sweats, complain of tiredness and fatigue and 3 pound weight loss HEENT: Patient did not mention [...] dizziness Skin: No lumps, bumps or rashes. Point review of system was reviewed Objective: Vital signs in last 24 hours: As per nursing note Exam: HEENT: Atraumatic, external ears normal, nose normal, [...] normal sensory function, no focal deficits noted Exam as above PATH LABS Labs from July 03 showed JAMISON negative creatinine 0.9 total bilirubin 0.3 alkaline phosphatase 137 vitamin B12 709 iron 37 saturation 12% ferritin 32 hemoglobin 13.8 WBC 4.1 MCV 87.7 platelet 255,000. Labs from January 02 showed creatinine 0.9 B12 983 iron 73 saturation 27 ferritin 85 hemoglobin 14.5 WBC 3.9 platelet 264,000 Assessment: Plan: There are no problems to display for this patient. Mild leukopenia. JAMISON came back negative. Vitamin B12 normal. Alkaline phosphatase slightly elevatedbut rest of the liver enzymes are normal. Iron level is slightly on the low side. Labs showed slightly low WBC but patient remains asymptomatic without any signs of infection. Iron deficiency anemia. Resolved. Patient will continue iron 325 mg daily. Bloating and abdominal discomfort. I will order abdominal ultrasound. Tiredness and fatigue. TSH, iron, vitamin B12 level and hemoglobin is stable. Will check testosterone level. Phone visit in 1 week to discuss findings. After my next visit patient will follow-up with the primary care physician. I will see him back on as-needed basis. . 01/07/2024 Derik Milton MD documented in this encounter Plan of Treatment Scheduled Orders Name Type Priority Associated Diagnoses Orde r Schedule US ABDOMEN COMPLETE Imaging Routine Abdominal discomfort 1 Occurrences starting 01/07/2024 until 01/06/2025 TESTOSTERONE FREE AND TOTAL Lab Stat Testosterone deficiency Expected: 01/07/2024, Expires: 01/06/2025 documented as of this encounter Visit Diagnoses Diagnosis Abdominal discomfort- Primary Abdominal pain, unspecified site Testosterone deficiency Other testicular hypofunction documented in this encounter Care Teams Accounting Systems Manager Relationship Specialty Start Date End Date Ha Jeter MD [address] [place] [phone] PCP - General Family Practice 09/05/23 documented as of this encounter
--- OUTSIDE RECORDS SUMMARY | 2024-03-14 13:09 | XMS_ITS | Encounter Summary ---
Author Organization [facility] Address [address] [place] [address] Care Team Providers Care Plant Technician/Control Room Operator Name Role Phone Ha Jeter MD Primary Care Provider [phone] Encounter Details Date Type Department Care Team (Late st Contact Info) Description 01/20/2024 External Device Data STL ABSTRACTION Provider, [...] on filedocumented in this encounter Care Teams Plant Technician/Control Room Operator Relationship Specialty Start Date End Date Ha Jeter MD [address] [place] [phone] PCP - General Family Practice 09/05/23 documented as of this encounter
--- OUTSIDE RECORDS SUMMARY | 2024-03-14 13:09 | XMS_ITS | Encounter Summary ---
Author Organization [facility] Address [address] [place] [address] Care Team Providers Care Global Vp Creative + Content Marketing Name Role Phone Ha Jeter MD Primary Care Provider [phone] Encounter Details Date Type Department Care Team (Late st Contact Info) Description 12/10/2023 External Device Data STL ABSTRACTION Provider, Abstract [...] on filedocumented in this encounter Care Teams Global Vp Creative + Content Marketing Relationship Specialty Start Date End Date Ha Jeter MD [address] [place] [phone] PCP - General Family Practice 09/05/23 documented as of this encounter
--- OUTSIDE RECORDS SUMMARY | 2024-03-14 13:09 | XMS_ITS | Encounter Summary ---
Author Organization [facility] [employer] [facility] Address [address] [place] [address] Care Team Providers Care Robotic Toy Inventor Name Role Phone Ha Jeter MD Primary Care Provider [phone] Encounter Details Date Type Department Care Team (Late st Contact Info) Description 09/10/2023 Orders Only [facility] Oncology and Hematology - [place] [address] [place] [address] Renetta Haney FNP [address] [facility] [address] [place] [address] Social History Tobacco Use Types [...] Associated Diagnosis Comments BASIC METABOLIC PANEL Routine 09/07/2023 3:41 PM CDT documented in this encounter Results * BASIC METABOLIC PANEL (09/07/2023 3:41 PM CDT) Blood Renetta Tomac CAR INSTALLATIONS SUPERVISOR CHEMISTRY ORDERABLES documented in this encounter Visit Diagnoses Not on filedocumented in this encounter Care Teams Robotic Toy Inventor Relationship Specialty Start Date End Date Ha Jeter MD [address] [place] [phone] PCP - General Family Practice 09/05/23 documented as of this encounter
--- OUTSIDE RECORDS SUMMARY | 2024-03-14 13:09 | XMS_ITS | Encounter Summary ---
Author Organization [facility] [employer] [facility] Address [address] [place] [address] Care Team Providers Care Smoking Pipes Cleaner Name Role Phone Ha Jeter MD Primary Care Provider [phone] Reason for Visit * Reason Onset Date Comments Lab Results 09/09/2023 Encounter Details Date Type Department Care Team (Late st Contact Info) Description 09/09/2023 Telephone [facility] Oncology and Hematology - [place] [address] [place] [address] Renetta Haney FNP [address] [phone] Lab Results Social History Tobacco Use Types Packs/Day Years [...] PM CDT documented as of this encounter Miscellaneous Notes * Telephone Encounter - Karine Mckeon - 09/10/2023 2:06 PM CDT Patient is aware of recommendations. He verbalized understanding with no further questions. * Telephone Encounter - Karine Mckeon - 09/10/2023 1:58 PM CDT LVM for patient to call office back. * Telephone Encounter - Karine Mckeon - 09/10/2023 10:04 AM CDT Unable to leave message for patient. It says that he is not available at this time and to call backlater. * Telephone Encounter - Karine Mckeon - 09/09/2023 9:16 AM CDT LVM for patient to call the office back. * Telephone Encounter - Karine Mckeon - 09/09/2023 9:16 AM CDT ----- Message from HERO Jc sent at 09/09/2023 8:22 AM CDT ----- Please call patient and let him know that his hgb and iron studies have improved since starting oral iron. I would like him to continue once a day. No need for infusion. His WBC are still stably low but work up is benign in nature. He should call if he is getting sick more frequently. documented in this encounter Plan of Treatment Not on file documented as of this encounter Visit Diagnoses Not on filedocumented in this encounter Care Teams Smoking Pipes Cleaner Relationship Specialty Start Date End Date Ha Jeter MD [address] [place] [phone] PCP - General Family Practice 09/05/23 documented as of this encounter
== END 2024-03-07 10:07 | disposition home or self-care (01) ==
LOC: ANHLAB 10:08
PROVIDERS: PCP Emergency Medicine; Visit Provider Emergency Medicine
DX: R94.5 Abnormal results of liver function studies (principal); D50.9 Iron deficiency anemia, unspecified
CPT/HCPCS: 36415; 82103; 83540; 84207; 85027

== ENCOUNTER 2024-03-28 10:26 | Outpatient (CLI) | payer OTHER, SELFPAY ==
--- NOTE | ~2024-03-28 | CT_ITS ---
Non-contrast CT scan of the Abdomen and Pelvis Clinical indication: Gallbladder sludge Technique: 2.5 mm axial scans were obtained through the abdomen and pelvis without intravenous or or al contrast. Dose reduction technique was used on this scan by utilizing automated exposure control a nd iterative reconstruction technique. The dose-length product (DLP) was 362.74 mGy-cm. Findings: Images through the lung bases reveal no abnormalities. There is no evidence of renal or ureteral calculi. The kidneys and the ureters are nondilated. The liver, spleen, pancreas, gallbladder, and adrenals appear normal. There is no aortic aneurysm. There is no evidence of bowel obstruction. Images through the pelvis were performed. There is no evidence of ascites or lymphadenopathy. Urinary bladder unremarkable. Prostate gland and seminal vesicles are unremarkable. Impression: No significant abnormality seen. Reviewed, dictated and finalized at [facility]. N EXPORT ACCOUNT MANAGER Impression: No significant abnormality seen.
== END 2024-03-28 10:27 | disposition home or self-care (01) ==
PROVIDERS: PCP Emergency Medicine; Visit Provider Emergency Medicine
DX: K82.4 Cholesterolosis of gallbladder (principal)
CPT/HCPCS: 74176

== ENCOUNTER 2024-04-22 16:43 | Outpatient (CLI) | payer OTHER, SELFPAY ==
--- NOTE | ~2024-04-22 | XR_ITS ---
Right foot Technique: AP, oblique, and lateral views were obtained. Clinical History: Pain Findings: No acute fracture or dislocation is seen. Osseous alignment is anatomic. Joint spaces are p reserved without erosive or degenerative change. Soft tissues are unremarkable. Impression: Unremarkable right foot radiographs. Reviewed, dictated and finalized at location . UTATIONAL GENETICIST Impression: Unremarkable right foot radiographs.
--- NOTE | ~2024-04-22 | XR_ITS ---
HISTORY: PAIN COMPARISON: None TECHNIQUE: 3 views of the left hand were performed. FINDINGS: No acute fracture is identified. Gullwing deformity within the proximal interphalangeal joints, findings suggestive of erosive arthrit is, psoriatic arthritis or rheumatoid arthritis. The remaining joint spaces are preserved. The carpal arcs are intact. Periarticular osteopenia is detected suggesting osteoarthritis. Trace degenerative disease at the first carpometacarpal joint space is also noted. Mild radiocarpal joint space narrowing with sclerosis of the distal radius is present. No significant soft tissue swelling. No radiopaque foreign body is identified. IMPRESSION: Degenerative disease, without acute fracture or dislocation within the left hand, as detailed above. Reviewed, dictated and finalized at location A. OR DIRECTOR INSIGHT IMPRESSION: Degenerative disease, without acute fracture or dislocation within the left henson d, as detailed above.
--- NOTE | ~2024-04-22 | XR_ITS ---
HISTORY: FOOT/JOINT PAIN COMPARISON: None TECHNIQUE: 3 views of the left foot were performed FINDINGS: No acute fracture or dislocation is appreciated. No significant degenerative disease is noted. The base of the fifth metatarsal is intact. No calcaneal spur is noted. No significant soft tissue swelling is present. IMPRESSION: Unremarkable radiographic evaluation of the left foot, as detailed above Reviewed, dictated and finalized at location A. ASSOCIATE
--- NOTE | ~2024-04-22 | XR_ITS ---
Right Hand Technique: PA, oblique, and lateral views were obtained. Clinical History: Pain Findings: No acute fracture or dislocation is seen. Osseous alignment is anatomic. Joint spaces are p reserved. Soft tissues are unremarkable. Impression: Unremarkable right hand. Reviewed, dictated and finalized at location M. TER MAINTENANCE Impression: Unremarkable right hand.
--- OUTSIDE RECORDS SUMMARY | 2024-04-22 16:47 | XMS_ITS | Clinical Summary ---
Author Organization [facility] Address [address] [place] [address] Care Team Providers Care Can Tender Name Role Phone Ha Jeter MD Primary Care Provider [phone] Allergies No known active allergies Medications Zinc Gluconate 30 mg Tablet Take by mouth. Over the counter Active ferrous sulfate 325 mg (65 mg iron) tablet Take 1 Tablet (325 mg) by mouth daily. 90 Tablet 3 09/05/2023 Active omega-3 fatty acids-fish oil 300-1,000 mg Capsule Take 2 Capsules by mouth daily. Active Active Problems No known active problems Encounters Date Type Department Care Team Description 04/09/2024 External Device Data STL ABSTRACTION Provider, Abstract 02/04/[address] [facility] Oncology and Hematology - [place] [address] 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 Gender Identity Male 01/10/2024 11:21 PM CDT Sexual Orientation Straight 01/10/2024 11 :21 PM CDT Last Filed Vital Signs Vital Sign Reading Time Taken Comments Blood Pressure 115/82 01/07/2024 2:04 PM CDT Pulse 73 01/07/2024 2:04 PM CDT Temperature 36.8 C (98.2 F) 01/07/2024 2:04 PM CDT Respiratory Rate 16 01/07/2024 2:04 PM CDT [...] on patient's age to complete this topic Insurance DR [address] [place] [id number] [facility] Care Teams Can Tender Relationship Specialty Start Date End Date Ha Jeter MD [address] [place] [address] [place] [phone] PCP - General Family Practice 09/05/23
== END 2024-04-22 16:44 | disposition home or self-care (01) ==
PROVIDERS: PCP Emergency Medicine; Visit Provider Emergency Medicine
DX: M18.12 Unilateral primary osteoarthritis of first carpometacarpal joint, left hand (principal); M79.641 Pain in right hand; M79.672 Pain in left foot; M79.671 Pain in right foot
CPT/HCPCS: 73130; 73630

== ENCOUNTER 2024-05-23 10:17 | Outpatient (CLI) | payer OTHER, SELFPAY ==
--- OUTSIDE RECORDS SUMMARY | 2024-05-23 10:21 | XMS_ITS | Clinical Summary ---
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
--- OUTSIDE RECORDS SUMMARY | 2024-05-23 10:21 | XMS_ITS | Patient Health Summary ---
Author Organization [facility] Address [address] [place] [address] Care Team Providers Care Ux Designer Name Role Phone Unavailable Primary Care Provider Unavailabl e Note from [facility],non-owned Affiliates and Associated Physician Practices is amultiple site organization consisting of ambulatory clinics and hospital sitesin [place], [place], [place] and [place]. This disclosure is being madepursuant to the Care Everywhere program and may not contain all information available regarding this patient. Last updated 17.[facility] Social History Tobacco Use Types Packs/Day Years Used Date Smoking Tobacco: Never Assessed Sex and Gender Information Value Date Recorded Sex Assigned at Not on file Gender Identity Not on file Sexual Orientation Not on file
--- OUTSIDE RECORDS SUMMARY | 2024-05-23 10:21 | XMS_ITS | Encounter Summary ---
Author Organization [facility] Address [address] [place] [address] Care Team Providers Care Rabbit Dresser Name Role Phone Unavailable Primary Care Provider Unavailabl e Reason for Visit * Reason Onset Date Comments Referral 05/21/2024 Encounter Details Date Type Department Care Team (Late st Contact Info) Description 05/21/2024 Telephone [facility] - Rheumatology [address], [address] [place] [address] Marcial Gonzalez DO [address] [place] [address] Referral Social History Tobacco Use Types Packs/Day Years Used Date Smoking Tobacco: Never Assessed Sex and Gender Information Value Date Recorded Sex Assigned at Not on file Gender Identity Not on file Sexual Orientation Not on file documented as of this encounter Miscellaneous Notes * Telephone Encounter - Sammy Costello RN - 05/22/2024 1:26 PM CST Called patient as a referral to [facility] from PCP Dr Jeter for erosive arthritis. No answerso LVM asking for a callback. Call #2. TERIA COUNTER ATTENDANT * Telephone Encounter - Kimberlee Castillo LPN - 05/21/2024 3:50 PM CAFETERIA COUNTER ATTENDANT Called patient as a referral to [facility] from PCP Dr Jeter for erosive arthritis. No answerso LVM asking for a callback. Call #1. TERIA COUNTER ATTENDANT documented in this encounter Plan of Treatment Not on file documented as of this encounter Visit Diagnoses Not on filedocumented in this encounter
--- OUTSIDE RECORDS SUMMARY | 2024-05-23 10:21 | XMS_ITS | Clinical Summary ---
Author Organization [facility] Address [address] [place] [address] Care Team Providers Care Cook Starch Name Role Phone Unavailable Primary Care Provider Unavailabl e Source Comments [facility],non-owned Affiliates and Associated Physician Practices is amultiple site organization consisting of ambulatory clinics and hospital sitesin [place] and [place]. This disclosure is being madepursuant to the Care Everywhere program and may not contain all information available regarding this patient. Last updated 17.[facility] Encounters Date Type Department Care Team Description 05/21/2024 Telephone [facility] - Rheumatology [address], [address] [place] [address] Marcial Gonzalez DO Referral from Last 3 Months Social History Tobacco Use Types Packs/Day Years Used Date Smoking Tobacco: Never Assessed Sex and Gender Information Value Date Recorded Sex Assigned at Not on file Gender Identity Not on file Sexual Orientation Not on file Plan of Treatment Health Maintenance Due Date Last Done Comments HIV SCREENING 08/27/1999 HEPATITIS C SCREENING 08/22/2002 DTAP/TDAP/TD VACCINES (1 - Tdap) 08/27/2003 HEPATITIS B VACCINE (1 of 3 - 19+ 3-dose series) 08/27/2003 COVID-19 VACCINE ( - 2023-2 5 season) 2023 INFLUENZA VACCINE (#1) 2023 DEPRESSION SCREENING 03/18/2024 ZOSTER VACCINE (1 of 2) 2034 HIB VACCINE Aged Out No longer eligi ble based on patient's age to complete this topic HPV VACCINE Aged Out No longer eligi ble based on patient's age to complete this topic MENINGOCOCCAL (Group B) VACCINE Aged Out No longer eligible based on patient's age to complete this topic MENINGOCOCCAL VACCINE Aged Out No casey beatriz eligible based on patient's age to complete this topic PNEUMOCOCCAL VACCINE Aged Out No long er eligible based on patient's age to complete this topic
--- OUTSIDE RECORDS SUMMARY | 2024-05-23 10:21 | XMS_ITS | Referral Summary ---
Author Organization [facility] Address [address] [place] [address] Care Team Providers Care Activity Director Name Role Phone Unavailable Primary Care Provider Unavailabl e Source Comments [facility],non-owned Affiliates and Associated Physician Practices is amultiple site organization consisting of ambulatory clinics and hospital sitesin [place], [place], [place] and [place]. This disclosure is being madepursuant to the Care Everywhere program and may not contain all information available regarding this patient. Last updated 17.[facility] Encounters Date Type Department Care Team Description 05/21/2024 Telephone [facility] - Rheumatology [address], [address] [place] [address] Marcial Gonzalez DO Referral from Last 3 Months Social History Tobacco Use Types Packs/Day Years Used Date Smoking Tobacco: Never Assessed Sex and Gender Information Value Date Recorded Sex Assigned at Not on file Gender Identity Not on file Sexual Orientation Not on file Plan of Treatment Not on file
[2024-05-23 11:11] LABS: Hematocrit 42.6 % (42.0-52.0); Hemoglobin 14.3 g/dL (14.0-18.0); Mean Corpuscular HGB Conc 33.6 g/dl (32-36); Mean Corpuscular Hemoglobin 29.1 pg (26-34); Mean Corpuscular Volume 86.8 fl (80-100); Mean Platelet Volume 11.9 fl (7.4-10.4); Platelet Count Result 257 k/mm3 (150-375); Red Blood Count 4.91 M/mm3 (4.6-6.20); Red Cell Distribution Width 13.2 % (11.5-14.5); White Blood Count 3.1 K/mm3 (4.5-10.0)
[2024-05-23 11:14] LABS: Add Urine Microscopic? NO; Appearance Urine Clear (Clear); Bilirubin Urine Negative (Negative); Blood Urine Negative (Negative); Color Urine Yellow (Yellow); Glucose Urine UA Negative (Negative); Ketones Urine Trace mg/dL (Negative); Leukocyte Esterase Ur Negative LEU/UL (Negative); Nitrate Urine Negative (Negative); Protein Urine Negative (Negative); Specific Grav Ur 1.016 (1.001-1.035); Urobilinogen Urine 0.2 mg/dL (<2.0); pH Urine 7.5 (5.0-9.0)
[2024-05-23 11:26] LABS: Iron 96 ug/dL (49-181)
[2024-05-23 11:34] LABS: Alanine Aminotransferase 19 U/L (6-50); Albumin Level 4.5 g/dL (3.5-5.1); Alkaline Phosphatase 103 U/L (38-126); Aspartate Amino Transferase 24 U/L (17-59); Bilirubin,Total 0.3 mg/dL (0.2-1.3); Magnesium 1.9 mg/dL (1.6-2.3); Phosphorus 3.5 mg/dL (2.5-4.5)
[2024-05-23 11:56] LABS: Vitamin D 25 Hydroxy 26.2 ng/mL
[2024-05-23 12:01] LABS: Syphilis IgG/IgM Antibody Negative (Negative)
[2024-05-23 12:06] LABS: Hepatitis B Surface Antigen Negative (Negative)
[2024-05-23 12:11] LABS: HAV RESULT Negative (Negative); Hepatitis B Core IgM Result Negative (Negative)
[2024-05-23 12:15] LABS: HIV 1/2 Ab P24 Ag Result Negative (Negative)
[2024-05-23 12:23] LABS: Hepatitis C Virus Antibody Negative (Negative)
[2024-05-23 12:32] LABS: Folic Acid 12.4 ng/mL (2.76->20)
[2024-05-23 19:30] LABS: Chlamydia trachomatis NOT DETECTED (NOT DETECTE); Neisseria gonorrhoeae PCR NOT DETECTED (NOT DETECTE)
[2024-05-27 10:08] LABS: Vitamin B1 7 nmol/L (8-30)
[2024-05-27 19:02] LABS: Vitamin B6 14.9 ng/mL (2.1-21.7)
== END 2024-05-23 10:18 | disposition home or self-care (01) ==
LOC: ANHLAB 10:19
PROVIDERS: PCP Emergency Medicine; Visit Provider Emergency Medicine
DX: R94.5 Abnormal results of liver function studies (principal); D72.819 Decreased white blood cell count, unspecified
CPT/HCPCS: 36415; 80074; 80076; 81003; 82306; 82607; 82746; 83540; 83735; 84100; 84207; 84425; 85027; 86593; 86703; 87491; 87591; G0432